=== PATIENT | female | born 1975 | race Two or more races ===

== ENCOUNTER 2023-12-03 09:22 | Outpatient (OUT) | payer BC, MEDICAID, SELFPAY ==
--- NOTE | 2023-11-30 08:44 | V.VEINS.HP ---
Vital Signs 12/03/23 10:36 Height 5 ft 4 in Weight 67.585 kg BMI 25.6 BP 139/76 BP Location Right Brachial BP Position Supine BP Cuff Size Adult BP Source Manual Cuff Respiration 16 Pulse 67 Pulse Source Monitor Pulse Oximetry (%) 96 Oxygen Delivery Method Room Air Comment The patient's blood pressure is elevated. Varicose Veins Patient is a 48 year old female in this day as a referral from her PCP Dr. Gauthier secondary to left lower leg painful varicose vein along with bilateral leg muscle cramping and increased fatigue. Patient c/o left leg pain near knee. Patient has had this pain for many of years. 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 Patient has worn bilateral leg knee high compression stockings for >3 years with some relief. Patient rates pain at a 8 on a scale of 10. Patient has family history of varicose vein disease in her father. Patient denies any previous vein procedures nor blood clots. Tony Reynolds MD personally performed the services described in this documentation, as scribed by Manoj Cisneros RN in my presence and it is both accurate and complete. Manoj Reynolds RN, am scribing for, and in the presence of, Dr. Tony Higuera and in the presence of the patient. . knee: left aching, cramping and dull 8 3 years Worsened in recent months: Yes standing and sitting analgesics (Tylenol), elevating extremities and compression stockings Reports limb pain (left leg) History of lower extremity trauma: No Superficial thrombophlebitis: No Family history of varicose veins: yes Has patient had previous lower extremity venous surgery: No Patient has previously received the following treatment(s) for lower extremity varicose veins: Reports none Does patient have a history of : yes Does patient intend to have future pregnancies: no Has patient had lower extremity venous scan with relux testing: No Support hose used: Yes Problems walking or doing physical activity: Yes How does it affect you: often has to stop and rest and elevate Do you walk much: Yes Do you stand much: Yes Review of Systems ROS Narrative Tony Reynolds MD personally performed the services described in this documentation, as scribed by Manoj Cisneros RN in my presence and it is both accurate and complete. Manoj Reynolds RN, am scribing for, and in the presence of, Dr. Tony Higuera and in the presence of the patient. Status of ROS 10 or more systems reviewed and unremarkable except as noted in history and below Integumentary/Breast Reports: skin tenderness Neurological Reports: weakness in extremities [facility] Medical History (Updated 12/03/23 @ 09:53 by Manoj Cisneros) Varicose veins of bilateral lower extremities with pain ?I83.813 - Varicose veins of bilateral lower extremities with pain (ICD-10) Anemia ?D64.9 - Anemia, unspecified (ICD-10) Carpal tunnel syndrome, left ?G56.02 - Carpal tunnel syndrome, left upper limb (ICD-10) Hyperlipemia ?E78.5 - Hyperlipidemia, unspecified (ICD-10) Microcytic anemia ?D50.9 - Iron deficiency anemia, unspecified (ICD-10) MRSA (methicillin resistant Staphylococcus aureus) ?A49.02 - Methicillin resistant Staphylococcus aureus infection, unspecified site (ICD-10) Phlebitis ?I80.9 - Phlebitis and thrombophlebitis of unspecified site (ICD-10) Cellulitis ?L03.90 - Cellulitis, unspecified (ICD-10) Surgical History (Updated 11/30/23 @ 12:53 by Manoj Cisneros) H/O: hysterectomy ?Z90.710 - Acquired absence of both cervix and uterus (ICD-10) Family History (Updated 11/30/23 @ 12:54 by Manoj Cisneros) Other Cerebral aneurysm Family history of myocardial infarction Renal failure Social History (Updated 11/30/23 @ 12:54 by Manoj Cisneros) Within the past year, how often did you have a drink containing alcohol: monthly or less Smoking status: Never smoker Non-prescribed substance use: denies use Meds Home Medications and Allergies Home Medications ?Medication ?Instructions ?Recorded ?Confirmed ?Type amlodipine 5 mg tablet 5 mg PO DAILY 11/30/23 11/30/23 History ferrous sulfate 325 mg (65 mg 325 mg PO DAILY 11/30/23 11/30/23 History iron) tablet (Feosol) Allergies Allergy/AdvReac Type Severity Reaction Status Date / Time No Known Drug Allergies Allergy Verified 11/30/23 12:55 Exam Narrative Exam Narrative: Tony Reynolds MD personally performed the services described in this documentation, as scribed by Manoj Cisneros RN in my presence and it is both accurate and complete. Manoj Reynolds RN, am scribing for, and in the presence of, Dr. Tony Higuera and in the presence of the patient. Constitutional Documenting provider has reviewed patient's vital signs: yes Common normals: oriented x3 Cardio Peripheral pulses: posterior tibial pulses present and dorsalis pedis pulses present Extremity Common normals: normal capillary refill General: calf tenderness and edema Right lower extremity: lower leg Right lower leg: inspection and palpation Left lower extremity: lower leg Left lower leg: inspection and palpation Neuro Common normals: oriented x3 Results Additional Findings Additional findings: Bilateral leg reflux u/s reveals left leg anterior accesssory saphenous vein and great saphenous vein insufficiency with associated dilatation along with branch saphenous truncal tributary varicosities. Tony Reynolds MD personally performed the services described in this documentation, as scribed by Manoj Cisneros RN in my presence and it is both accurate and complete. IManoj RN, am scribing for, and in the presence of, Dr. Tony Higuera and in the presence of the patient. Assessment and Plan Assessment and Plan Plan Plan is for patient to continue use of bilateral leg compression stockings, exercise, rest, and elevation of bilatreal legs/feet. Patient to return for EVLT of left AASV followed by left GSV followed by microfoam chemical ablation branch saphenous varicosities. Tony Reynolds MD personally performed the services described in this documentation, as scribed by Manoj Cisneros RN in my presence and it is both accurate and complete. Manoj Reynolds RN, am scribing for, and in the presence of, Dr. Tony Higuera and in the presence of the patient.
--- NOTE | 2023-11-30 08:46 | P.DS_ITS ---
Discharge Plan Discharge Disposition: Home, Self-Care Outpatient Diagnostics: VC Endovenous Ablation 1VeinLT (Routine) Timeframe: 2 Months Facility: [facility] - Location: [facility] Center Ordered By: Tony Higuera Plan of Treatment: EVLT of left AASV Print Language: Georgian Discharge Date/Time: 12/03/23 11:49
--- NOTE | 2023-12-03 09:25 | VEIN_ITS ---
Patient Name: ANA EMMANUEL MR#: [id number] : 1975 Exam Date: 12/03/2023 Ordering Doctor: DR TONY HIGUERA M.D. RADIOLOGY REPORT PROCEDURE: [facility] VEIN [place] - OFFICE VISIT INITIAL COMPARISON: None. PROGRESS NOTES: 48-year-old female who presents from her primary care physician, Dr. Gauthier, with a long history of left leg pain and swelling and muscle cramping. The patient describes the pain as achy and sometimes sharp rating the pain as an 8 on a scale of 1-10. The patient's pain is exacerbated by prolonged standing required of her job working in [place] at [employer] for the past 19 years. The patient has had some partial relief with compression stockings which she has worn for approximately 3 years. The patient denies any signs and symptoms to suggest arterial ischemia. The patient describes a family history significant for cerebral aneurysm and myocardial infarction and renal failure. Patient's past medical history significant for cellulitis, phlebitis, hyperlipidemia and anemia. Past surgical history significant for hysterectomy. No history of deep venous thrombus or pulmonary embolus. See separate history and physical for medication list. No prior treatment for varicose or spider veins. Nursing notes were reviewed. After history and physical exam I discussed at length the pathophysiology of venous hypertension and possible treatments, therapies and strategies available. We discussed at length the importance of elevating the lower extremities above the level of the heart, increased physical activity and compression stocking use. Intravenous laser ablation micro foam chemical ablation were explained at length to the patient and her . Risks benefits on alternatives were discussed. Their questions were answered. Ultrasound venous reflux study performed the same day was discussed at length with the patient. The report demonstrates moderate bilateral great saphenous vein and left anterior accessory saphenous vein venous insufficiency. Bilateral incompetent varicose veins. In light of the patient not having symptoms on the right I recommended no treatment of the right leg at this time. PHYSICAL EXAM: The right leg demonstrates no significant varicose reticular spider veins. No active ulceration, hemosiderin staining or subcutaneous edema The left leg demonstrates moderate scattered varicose veins along the anterior thigh, lateral knee and lateral lower leg. No subcutaneous edema or hemosiderin staining. No active ulceration Both thighs, legs and feet were symmetrically warm to the touch. Good posterior tibial and dorsalis pedis pulses were present bilaterally. VEIN/VC Facility NEW Comprehensive IMPRESSION: 1. Bilateral great saphenous vein, left anterior accessory saphenous vein venous insufficiency with dilatation and saphenofemoral junction reflux 2. Left lower extremity varicose veins 3. No definite lower extremity subcutaneous edema 4. No definite flow significant arterial disease 5. CEAP: C2, Ep, As, Pr PLAN: 1. Endovenous laser ablation left anterior accessory saphenous vein followed by left great saphenous vein 2. Micro foam chemical ablation left leg incompetent varicose veins 3. Continued use of bilateral thigh-high or knee high 20-30 mm compression stockings 4. Leg elevation and continued physical activity for symptomatic relief Nurse notes, history and physical were reviewed and confirmed, see attached forms. The nurse was present throughout the physical exam and consultation Dictated by: Tony Higuera MD on 12/03/2023 at 11:17 Approved by: Tony Higuera MD on 12/03/2023 at 11:29
--- NOTE | 2023-12-03 09:25 | VEIN_ITS ---
Patient Name: ANA EMMANUEL MR#: [id number] : 1975 Exam Date: 12/03/2023 Ordering Doctor: DR TONY HIGUERA M.D. RADIOLOGY REPORT PROCEDURE: VC EXT VENOUS REFLUX KATIA LMTD COMPARISON: None. INDICATIONS: I83.813 Bilateral painful varicose veins TECHNIQUE: Duplex imaging of the lower extremity to assess the deep and superficial venous system for the presence of deep or superficial venous incompetence and to document the location and severity of disease. The study includes evaluation of the great saphenous vein (GSV), anterior accessory saphenous vein (AASV) and small saphenous vein (SSV). Patient scanned in reverse Trendelenburg and standing. FINDINGS: RIGHT LOWER EXTREMITY: Saphenofemoral Junction Reflux: Yes 8.8mm 0.6 sec GSV: Diam (mm) Reflux/ Time (sec) Proximal Thigh 7.1 Yes 1.1 Mid Thigh 2.9 Yes 0.4 Distal Thigh 3.4 Yes 0.6 Prox Calf 3.0 Yes 4.0 Mid Calf 2.2 Yes 1.8 Saphenopopliteal Junction Reflux: 1.3mm No SSV: Proximal Calf 1.9 Yes 0.6 Mid Calf 1.7 No AASV: Proximal Thigh 3.1 No Mid Thigh Distal Thigh Thrombi: No acute or chronic thrombus. Compressibility: Normal. Flow: No deep venous reflux. Preforator: Proximal medial calf 2.7 mm with 1.5s reflux. Tech Note: Incompetent varicose vein proximal medial lower leg measures 4.0 mm with 1.0s reflux. LEFT LOWER EXTREMITY: Saphenofemoral Junction Reflux: Yes 8.1 mm 1.6 sec GSV: Diam (mm) Reflux/Time (sec) Proximal Thigh 8.2 Yes 0.9 Mid Thigh 5.2 Yes 0.5 Distal Thigh 4.8 Yes 0.4 Prox Calf 3.8 Yes 2.4 Mid Calf 1.0 Yes 1.3 Saphenopopliteal Junction Relux: 1.7 mm No SSV: Proximal Calf 1.2 No Mid Calf 3.3 Yes 4.7 AASV: Proximal Thigh 5.9 Yes 2.4 Mid Thigh 3.6 Yes 1.6 Distal Thigh Thrombi: No acute or chronic thrombus. Compressibility: Normal. Flow: Minimal deep venous reflux. Business Systems Consultant: Mid medial lower leg 2.3 mm with 2.9s reflux. Tech Note: Incompetent varicose vein off of AASV proximal lateral lower leg measures 4.0 mm with 1.5s reflux. Varicose vein proximal medial lower leg measures 4.0 mm with 0.8s reflux. CONCLUSION: 1. Moderate right great saphenous vein venous insufficiency with mild proximal dilatation and saphenofemoral junction reflux 2. Moderate left great saphenous vein venous insufficiency with dilation and saphenofemoral junction reflux 3. Moderate left anterior accessory saphenous vein venous insufficiency with dilatation 4. Bilateral incompetent varicose veins Dictated by: Tony Higuera MD on 12/03/2023 at 10:42 Approved by: Tony Higuera MD on 12/03/2023 at 10:44
[2023-12-03 10:36] VITALS: BP 139/76; PULSE 67; O2SAT 96; BMI 25.6
== END 2023-12-03 11:49 | disposition home or self-care (01) ==
LOC: VC 09:23
PROVIDERS: PCP Family Medicine; Visit Provider Radiology Diagnostic Radiology
DX: I83.813 Varicose veins of bilateral lower extremities with pain (principal)
CPT/HCPCS: 93970; G0463

== ENCOUNTER 2024-01-08 10:16 | Outpatient (OUT) | payer BC, MEDICAID, SELFPAY ==
--- NOTE | 2024-01-07 13:57 | VEINCLINIC_ITS ---
Vital Signs 01/08/24 11:07 BP 150/70 H BP Location Left Brachial BP Position Sitting BP Cuff Size Adult BP Source Automatic Cuff Respiration 16 Pulse 80 Pulse Source Monitor Pulse Oximetry (%) 98 Oxygen Delivery Method Room Air Comment The patient's blood pressure is elevated. Varicose Veins Patient in this day for EVLT of left AASV. Clem Reynolds MD personally performed the services described in this documentation, as scribed by Manoj Cisneros RN in my presence and it is both accurate and complete. Manoj Reynolds RN, am scribing for, and in the presence of, Dr. Clem Kumar and in the presence of the patient. . knee: left aching, cramping and dull 8 3 years Worsened in recent months: Yes standing and sitting analgesics (Tylenol), elevating extremities and compression stockings Reports limb pain (left leg) History of lower extremity trauma: No Superficial thrombophlebitis: No Family history of varicose veins: yes Has patient had previous lower extremity venous surgery: No Patient has previously received the following treatment(s) for lower extremity varicose veins: Reports none Does patient have a history of : yes Does patient intend to have future pregnancies: no Has patient had lower extremity venous scan with relux testing: No Support hose used: Yes Problems walking or doing physical activity: Yes How does it affect you: often has to stop and rest and elevate Do you walk much: Yes Do you stand much: Yes Review of Systems ROS Narrative Clem Reynolds MD personally performed the services described in this documentation, as scribed by Manoj Cisneros RN in my presence and it is both accurate and complete. Manoj Reynolds RN, am scribing for, and in the presence of, Dr. Clem Kumar and in the presence of the patient. Status of ROS 10 or more systems reviewed and unremark able except as noted in history and below Integumentary/Breast Reports: skin tenderness Neurological Reports: weakness in extremities [facility] Medical History (Updated 12/03/23 @ 09:53 by Manoj Cisneros) Varicose veins of bilateral lower extremities with pain ?I83.813 - Varicose veins of bilateral lower extremities with pain (ICD-10) Anemia ?D64.9 - Anemia, unspecified (ICD-10) Carpal tunnel syndrome, left ?G56.02 - Carpal tunnel syndrome, left upper limb (ICD-10) Hyperlipemia ?E78.5 - Hyperlipidemia, unspecified (ICD-10) Microcytic anemia ?D50.9 - Iron deficiency anemia, unspecified (ICD-10) MRSA (methicillin resistant Staphylococcus aureus) ?A49.02 - Methicillin resistant Staphylococcus aureus infection, unspecified site (ICD-10) Phlebitis ?I80.9 - Phlebitis and thrombophlebitis of unspecified site (ICD-10) Cellulitis ?L03.90 - Cellulitis, unspecified (ICD-10) Surgical History (Updated 01/08/24 @ 10:54 by Manoj Cisneros) Status post laser ablation of incompetent vein ?Z98.890 - Other specified postprocedural states (ICD-10) H/O: hysterectomy ?Z90.710 - Acquired absence of both cervix and uterus (ICD-10) Family History (Updated 11/30/23 @ 12:54 by Manoj Cisneros) Other Cerebral aneurysm Family history of myocardial infarction Renal failure Social History (Updated 11/30/23 @ 12:54 by Manoj Cisneros) Within the past year, how often did you have a drink containing alcohol: monthly or less Smoking status: Never smoker Non-prescribed substance use: denies use Meds Home Medications and Allergies Home Medications ?Medication ?Instructions ?Recorded ?Confirmed ?Type amlodipine 5 mg tablet 5 mg PO DAILY 11/30/23 11/30/23 History ferrous sulfate 325 mg (65 mg 325 mg PO DAILY 11/30/23 11/30/23 History iron) tablet (Feosol) Allergies Allergy/AdvReac Type Severity Reaction Status Date / Time No Known Drug Allergies Allergy Verified 11/30/23 12:55 Exam Narrative Exam Narrative: IClem MD personally performed the services described in this documentation, as scribed by Manoj Cisneros RN in my presence and it is both accurate and complete. IManoj RN, am scribing for, and in the presence of, Dr. Clem Kumar and in the presence of the patient. Constitutional Documenting provider has reviewed patient's vital signs: yes Common normals: oriented x3 Cardio Peripheral pulses: posterior tibial pulses present and dorsalis pedis pulses present Extremity Common normals: normal capillary refill General: calf tenderness and edema Right lower extremity: lower leg Right lower leg: inspection and palpation Left lower extremity: lower leg Left lower leg: inspection and palpation Neuro Common normals: oriented x3 Assessment and Plan Assessment and Plan (1) Varicose veins of bilateral lower extremities with pain: Plan f/u evaluation with physician along with left leg limited u/s Clem Reynolds MD personally performed the services described in this documentation, as scribed by Manoj Cisneros RN in my presence and it is both accurate and complete. IManoj RN, am scribing for, and in the presence of, Dr. Clem Kumar and in the presence of the patient. Procedures Procedure Instructions Procedures Plan of care: Risks and benefits of the procedure were discussed at length and informed written consent was obtained.? Time-out completed for verification of correct patient, procedure and site.? Staff present during time-out: Manoj Cisneros RN,? Clem Kumar MD, [facility],T. Time Out Time__1051 Patient prepped and procedure performed in usual sterile fashion. Risk of injury related to use of Diode laser and/or laser devices? __CR___ ? Serial number of laser used :? [id number] Control panel self test performed, electrical cords in good condition, floor is dry, basin of water available, fire extinguisher in close proximity_CR__ Polycarbonate goggles available and Laser warning signs outside of doors___CR__ Eye protection provided to patient and staff in room_CR___ Use of laser retardant drapes and dull blackened instruments as directed__CR___ Use of nonflammable prep solutions and use of saline soaked sponges to protect tissues as indicated _CR___ Length __1051 cm Laser operated by _Dr. Kumar Physician verbal confirmation laser locked in place__CR__ Laser start time (date and time) _01/07/2024@__1112 Laser stop time(date and time) _01/07/2024@__1113 Bautista _8.0___ Average laser use __21 Joules Average laser use__169 seconds Pulse continuous ___CR_? Pulse intermittent ___ Amount of Tumescent used _75 Evaluated patient for signs and symptoms of electrical injury __CR___ ? Skin clear at insertion site __CR___ Patient tolerated procedure well.? Left leg Coban dressing applied to access site.? Applied Left thigh high leg compression stocking. Will return on 01/15/2024 for Left leg limited venous ultrasound and exam. IClem MD personally performed the services described in this documentation, as scribed by Manoj Cisneros RN in my presence and it is both accurate and complete. I, Manoj Cisneros RN, am scribing for, and in the presence of, Dr. Clem Kumar and in the presence of the patient.
--- NOTE | 2024-01-07 14:01 | W.VEIN ---
Discharge Plan Discharge Disposition: Home, Self-Care Outpatient Diagnostics: VC Facility EST LMTD (Routine) Timeframe: 2 Weeks Facility: [facility] - Location: Vein Center Ordered By: Clem Kumar VC EXT Venous LT Limited (Routine) Timeframe: 2 Weeks Facility: [facility] - Location: Vein Center Ordered By: Clem Kumar Follow Up Appointments: 01/15/2024 Plan of Treatment: f/u evaluation with physician along with left leg limited u/s Patient Instructions: Endovenous Ablation (DC) Print Language: Dominican Discharge Date/Time: 01/08/24 11:06
[2024-01-08] MEDS: LIDOCAINE HCL 1% 100 MG/10 ML MDV INJ (10:15)
[2024-01-08] MEDS: 0.9 % SODIUM CHLORIDE 500 ML, LIDOCAINE HCL 20 ML, SODIUM BICARBONATE 10 MEQ INJ (10:16)
--- NOTE | 2024-01-08 10:16 | VEIN_ITS ---
[address] [address] Patient Name: ANA EMMANUEL MRN: [id number] date: 1975 Sex: F Assigned Patient Location: Current Patient Location: Accession/Order Number: [id number] Exam Date: 01/08/2024 10:23 Report Date: 01/08/2024 11:39 At the request of: CHENTE ROBERTS Procedure: VC Endovenous Ablation 1VeinLT EXAMINATION: VC Endovenous Ablation 1VeinLT HISTORY: I83.813 - Varicose veins of bilateral lower extremities w... The risks and benefits of the procedure had been previously discussed, and were rediscussed at length. Informed written consent was obtained. Manoj Cisneros RN and Keisha Montero RDMS, RVT assisted. Time out procedure was performed. The left lower extremity was prepared and draped in the usual sterile fashion to allow knee flexion in the sterile field. Duplex ultrasound probe was draped in a sterile cover, sterile transmission gel was used. Venous mapping was performed with the areas of dilation and large tributaries marked. The total length was 6 cm from the entry upper thigh to 3 cm below the Saphenofemoral junction. The diameter of the left anterior accessory saphenous vein ranged from 5.9 mm. A 30 gauge needle and 1% buffered lidocaine was used to anesthetize the entry site. A 4 mm incision was made with a scalpel and the saphenous vein was entered percutaneously under direct ultrasound guidance with a micropuncture set, a single stick was successful in gaining access. A micro-guide wire was inserted and the needle removed. A micro-set including a dilator was inserted over the microwire and the needle and dilator were removed. A guide wire was inserted through the micro-set and guided through the saphenous vein to the saphenofemoral junction. The dilator was removed and an introducer sheath was inserted over the wire until the end of the sheath entered the saphenofemoral junction. The dilator and wire were removed and the 600 micron fiber was introduced and placed and positioned so that it extended beyond the sheath and was 3 cm distal to the saphenofemoral or saphenopopliteal junction. Final position of the fiber was determined by ultrasound guidance and duplex imaging. Tumescent anesthetic was delivered by ultrasound guidance. 75 cc of fluid was delivered along the entire course of the saphenous vein. The solution consisted of 1000 cc of normal saline with 40 mL of 1% lidocaine and 20 mL of sodium bicarbonate. A final positioning check was made. The energy source was turned on by means of the foot pedal and the fiber and sheath were withdrawn. The total number of Joules delivered was 21. The laser was active for 169 seconds under continuous pulse, average laser use of 8 J. Laser start time: 11:12 AM Laser stop time: 11:12 AM Date: 01/08/2024. A duplex ultrasound revealed compressibility and flow at the saphenofemoral junction immediately after the procedure. Hemostasis at the access site was achieved. The skin incision of the saphenous vein was closed with a 4 x 4. A compression stocking was applied. Postop instructions were given. A follow up appointment was recommended and scheduled. The patient tolerated the procedure well. Electronically authenticated by: MALDONADO BLEVINS Date: 01/08/2024 11:39
--- OUTSIDE RECORDS SUMMARY | 2024-01-08 10:26 | XMS_ITS | CCD ---
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 Name Role Phone Fabio Gauthier Unavailable DO Fabio Gauthier Primary Care Provider DO Fabio Gauthier Attending Provider EFRA Joseph- Fanny Hitchcock Emergency Provider DO Fabio Gauthier Primary Care Provider DO Fabio Gauthier Attending Provider DO Fabio Gauthier Primary Care Provider DO Fabio Gauthier Attending Provider [phone] Fabio Gauthier Primary Care Unavailable Fabio Gauthier Attending Unavailable Fabio Gauthier Admitting Unavailable Fabio Gauthier Referring Unavailable Self, Referral Admitting Unavailable Self, Referral Attending Unavailable Fabio Gauthier Primary Care Unavailable DO Fabio Gauthier Referring Provider Self, Referral Attending Provider Unavailable Medications Current Medications Medication Drug Class(es) Dates Sig (Normalized) Sig (Original) acetaminophen 325 mg oral tablet (5 sources) take 1 tablet by mouth every four hours Tylenol 325 MG 1 tablet as needed Orally every 4 hrs Active amoxicillin 875 mg oral tablet (8 sources) Penicillin-class Antibacterial Start: 11-24-2020 take 1 tablet by mouth every eight hours Amoxicillin 875 MG 1 tablet Orally TID for 10 days Nov, Active cefdinir 300 mg oral capsule (3 sources) Cephalosporin Antibacterial Start: 09-27-2021 take 1 capsule by mouth every twelve hours Cefdinir 300 MG 1 capsule Orally BID for 10 days Sep, Active Start: 05-31-2021 take 1 capsule by mo [facility] every twelve hours Cefdinir 300 MG 1 capsule Orally BID for 10 days May, Active cholecalciferol 0.05 mg oral tablet (4 sources) Vitamin D take 1 tablet by mouth every twenty-four hours Vitamin D 50 MCG (2000 UT) 1 tablet Orally Once a day Active cyclobenzaprine hydrochloride 10 mg oral tablet (5 sources) Muscle Relaxant Start: 2021 take 1 tablet by mouth every twenty-four hours Cyclobenzaprine HCl 10 MG 1 tablet at bedtime as needed Orally Once a day Oct, Active dexamethasone 2 mg oral tablet (8 sources) Corticosteroid Start: 2020 Dexamethasone 2 MG 1 tablet Orally tid x 3 days, bid x 3 days, qd x 3 days for 9 days Dec, Active famotidine 26.6 mg / ibuprofen 800 mg oral tablet (8 sources) Nonsteroidal Anti-inflammatory Drug, Histamine-2 Receptor Antagonist Start: 2020 take 1 tablet by mouth every eight hours Duexis 800-26.6 MG 1 tablet Orally Three times a day Apr, Active ferrous sulfate 325 mg delayed release oral tablet (18 sources) Start: 2018 take 325 mg by mouth once daily Ferrous Sulfate Active 325 MG PO Daily February 27, 2019 1:00am take 1 tablet by mireya th every twenty-four hours Iron 325 (65 Fe) MG 1 tablet Orally Once a day Active fluticasone propionate 0.05 mg/actuat metered dose nasal spray (8 sources) Corticosteroid Start: 04-11-2019 take 2 spray(s) nasal route once daily as needed Fluticasone Propionate 50 MCG/ACT 2 spray in each nostril Nasally Once a day PRN Mar, Active Iron (6 sources) take 1 tablet by mouth once daily Iron 325 (65 Fe) MG 1 tablet Orally Once a day Active Magnesium (4 sources) take 1 capsule by mouth once daily Magnesium 300 MG 1 capsule with a meal Orally Once a day Active meloxicam 15 mg oral tablet (8 sources) Nonsteroidal Anti-inflammatory Drug Start: 10-15-2020 take 1 tablet by mouth every twenty-four hours Meloxicam 15 MG 1 tablet Orally Once a day for 30 day(s) Oct, Active oseltamivir 75 mg oral capsule (4 sources) Neuraminidase Inhibitor Start: 03-09-2021 take 1 capsule by mouth every twelve hours Tamiflu 75 MG 1 capsule Orally Twice a day for 5 day(s) Feb, Active paxlovid (300/100) 20 x 150 mg & 10 x 100mg tablet therapy pack (1 source) Start: 04-20-2023 take 3 tablets by mouth every twelve hours Paxlovid (300/100) 20 x 150 MG & 10 x 100MG 3 tablets Orally Twice a day for 5 days positive covid 04/20/23 GFR>60 Apr, Active Vitamin B 12 500 MCG (2 sources) take 1 tablet by mouth once daily Vitamin B 12 500 MCG 1 tablet Orally Once a day Active vitamin b12 0.5 mg oral tablet (2 sources) Vitamin B12 take 1 tablet by mouth every twenty-four hours Vitamin B 12 500 MCG 1 tablet Orally Once a day Active Xyzal Allergy 24HR 5 MG (8 sources) Start: 05-11-2020 take 1 tablet by mouth once daily in the evening Xyzal Allergy 24HR 5 MG 1 tablet in the evening Orally Once a day for 30 day(s) sample May, Active Completed/Discontinued Medications Medication Drug Class(es) Dates Sig (Normalized) Sig (Original) acetaminophen 325 mg / HYDROcodone bitartrate 5 mg oral tablet (8 sources) Opioid Agonist Start: 03-10-2019 End: 10-24-2021 take 1 tablet by mouth every six hours Hydrocodone-Aceta minophen Discontinued 1 TAB PO Q6H 28 March 10, 2019 October 24, 2021 9:40am amLODIPine 5 mg oral tablet (20 sources) Dihydropyridine Calcium Channel Berhane Start: 07-08-2018 End: 11-02-2023 take 5 mg by mouth once daily Amlodipine Discontinued 5 MG PO Daily August 03, 2018 12:00am November 02, 2023 12:05pm amoxicillin 875 mg / clavulanate 125 mg oral tablet (12 sources) Penicillin-class Antibacterial Start: 10-24-2021 End: 10-12-2023 take 1 tablet by mouth twice daily Amoxicillin-Pot Clavulanate Discontinued 1 TAB PO Twice daily October 24, 2021 12:00am October 12, 2023 11:37am Start: 10-24-2021 take 1 tablet by mireya twice daily Amoxicillin-Pot Clavulanate Active 1 TAB PO Twice daily October 24, 2021 12:00am Start: 10-24-2021 take 1 tablet by mireya th twice daily Amoxicillin-Pot Clavulanate Active 1 TAB PO Twice daily October 24, 2021 12:00am Start: 10-12-2021 take 1 tablet by mireya th every twelve hours Amoxicillin-Pot Clavulanate 875-125 MG 1 tablet Orally every 12 hrs for 14 days Oct, Active Start: 06-22-2021 take 1 tablet by mireya th every twelve hours Amoxicillin-Pot Clavulanate 875-125 MG 1 tablet Orally every 12 hrs Jun, Active azithromycin 250 mg oral tablet (20 sources) Macrolide Antimicrobial Start: 05-17-2023 End: 10-12-2023 Azithromycin (Zithromax Z-Sunny) 250 mg tablet Discontinued 250 MG PO As Directed July 16, 2023 10:34am October 12, 2023 11:37am ZPAK Start: 04-17-2023 Zithromax Z-Pa k 250 MG 2 tablets on the first day, then 1 tablet daily for 4 days Orally Once a day for 5 day(s) Apr, Active Start: 11-04-2021 Zithromax Z-Pa k 250 MG as directed Orally as directed May, Active Start: 07-21-2021 Zithromax Z-Pa k 250 MG 2 tablet on the first day, then 1 tablet daily for 4 days Orally Once a day for 5 day(s) July, Active Start: 10-12-2020 Zithromax Z-Pa k 250 MG 2 tablet on the first day, then 1 tablet daily for 4 days Orally Once a day for 5 day(s) Feb, Active cephalexin 500 mg oral capsule (8 sources) Cephalosporin Antibacterial Start: 08-03-2018 End: 12-27-2018 take 1 capsule by mouth four times daily Cephalexin (Keflex) 500 mg capsule Discontinued 500 MG PO Four times daily 06 10August 03, 2018 12:00am December 27, 2018 3:31pm estradiol 1 mg oral tablet (16 sources) Estrogen Start: 08-03-2018 End: 10-24-2021 take 1 mg by mouth once daily at breakfast Estradiol Discontinued 1 MG PO Daily with breakfast August 03, 2018 12:00am [place] 15th, 2022 9:40am hydrocortisone 10 mg/ml / neomycin 3.5 mg/ml / polymyxin b [id number] unt/ml otic suspension (8 sources) Aminoglycoside Antibacterial, Polymyxin-class Antibacterial, Corticosteroid Start: 11-26-2020 End: 10-24-2021 Tcwmwmuj-Jmbdgoppy-Uy Discontinued 4 DROPS EAR-BOTH Three times daily 10 November 26, 2020 12:00am October 24, 2021 9:40am methylPREDNISolone 4 mg oral tablet (3 sources) Corticosteroid Start: 11-02-2023 End: 01-04-2024 take 1 tablet by mouth once Methylprednisolone (Medrol (Sunny)) 4 mg tablets,dose pack Discontinued 0 PO per package directions November 02, 2023 12:00am January 04, 2024 8:58am PO PER PKG DIR naproxen sodium 220 mg oral tablet (8 sources) Nonsteroidal Anti-inflammatory Drug Start: 02-27-2019 End: 10-24-2021 take 1 tablet by mouth twice daily Naproxen Sodium (Aleve) 220 mg Tablet Discontinued 220 MG PO Twice daily February 27, 2019 1:00am October 24, 2021 9:40am Problems Active Problems Problem Classification Problem Date Documented Da te Episodic/Chronic Abdominal pain (8 sources) Flank pain; Translations: [Unspecified abdominal pain] 08-03-2018 Episodic Biliary tract disease (8 sources) Biliary colic; Translations: [Calculus of bile duct without cholangitis or cholecystitis without obstruction] 02-08-2019 Episodic Conditions associated with dizziness or vertigo (3 sources) Dizziness and giddiness Onset: 2 Resolved: 2 Episodic Deficiency and other anemia (20 sources) Microcytic anemia; Translations: [Iron deficiency anemia, unspecified] Episodic Deficiency and other anemia (2 sources) Iron deficiency anemia, unspecified Episodic Diabetes mellitus without complication (2 sources) Hyperglycemia, unspecified; Translations: [Other abnormal glucose] Onset: 4 11-02-2023 Episodic Disorders of lipid metabolism (20 sources) Hyperlipidemia; Translations: [Hyperlipidemia, unspecified] Onset: 4 Chronic Essential hypertension (20 sources) Elevated blood pressure; Translations: [Essential (primary) hypertension] Onset: 2 Resolved: 2 Chronic Malaise and fatigue (1 source) Other fatigue Episodic Menopausal disorders (6 sources) Menopausal flushing; Translations: [Menopausal and female climacteric states] Chronic Osteoarthritis (20 sources) Osteoarthritis of knee; Translations: [Unilateral primary osteoarthritis, left knee] Chronic Other circulatory disease (11 sources) Elevated blood pressure; Translations: [Elevated blood-pressure reading, without diagnosis of hypertension] Episodic Other connective tissue disease (19 sources) Pain in left lower limb; Translations: [Pain in left leg] Episodic Other connective tissue disease (8 sources) Pain of bilateral hands; Translations: [Pain in right hand] Episodic Other connective tissue disease (8 sources) Pain of left hand; Translations: [Pain in left hand] Episodic Other ear and sense organ disorders (9 sources) Otalgia, right ear; Translations: [Right ear pain] Episodic Other ear and sense organ disorders (8 sources) Impacted cerumen; Translations: [Impacted cerumen, unspecified ear] 12-27-2018 Episodic Other ear and sense organ disorders (8 sources) Acute otitis externa; Translations: [Unspecified acute noninfective otitis externa, right ear] 11-26-2020 Episodic Other hematologic conditions (20 sources) H/O: anemia - iron deficient; Translations: [Personal history of diseases of the blood and blood-forming organs and certain disorders involving the immune mechanism] Episodic Other liver diseases (1 source) Elevated liver enzymes level; Translations: [Abnormal levels of other serum enzymes] 01-04-2024 Episodic Other liver diseases (1 source) Abnormal levels of other serum enzymes; Translations: [Other nonspecific abnormal serum enzyme levels] 01-04-2024 Episodic Other lower respiratory disease (1 source) Cough; Translations: [Cough] 01-04-2024 Episodic Other nervous system disorders (20 sources) Carpal tunnel syndrome of left wrist; Translations: [Carpal tunnel syndrome, left upper limb] Chronic Other non-traumatic joint disorders (19 sources) Pain in left knee; Translations: [Left knee pain, unspecified chronicity] Episodic Other screening for suspected conditions (not mental disorders or infectious disease) (5 sources) Encounter for other screening for malignant neoplasm of breast; Translations: [Encounter for screening for malignant neoplasm of colon] Onset: Episodic Other upper respiratory disease (10 sources) Congestion of nasal sinus; Translations: [Nasal congestion] Episodic Other upper respiratory disease (1 source) Other specified disorders of nose and nasal sinuses Episodic Other upper respiratory infections (18 sources) Sinusitis; Translations: [Chronic sinusitis, unspecified] Onset: 2 Resolved: 2 10-24-2021 Chronic Other upper respiratory infections (19 sources) Acute sinusitis; Translations: [Acute sinusitis, unspecified] Episodic Otitis media and related conditions (20 sources) Mastoiditis; Translations: [Unspecified mastoiditis, right ear] Onset: 2 Resolved: 2 Episodic Phlebitis; thrombophlebitis and thromboembolism (20 sources) Phlebitis; Translations: [Phlebitis and thrombophlebitis of unspecified site] 11-02-2023 Episodic Residual codes; unclassified (20 sources) Family history of malignant neoplasm of ovary; Translations: [Family history of malignant neoplasm of ovary] Episodic Residual codes; unclassified (1 source) Family history of diabetes mellitus Episodic Skin and subcutaneous tissue infections (8 sources) Cellulitis; Translations: [Cellulitis, unspecified] 08-03-2018 Episodic Past or Other Problems Problem Classification Problem Date Documented Date Episodic/Chronic Headache; including migraine (3 sources) Headache; including migraine; Translations: [Headache R51.9] Onset: 12-20-2020 Resolved: 12-20-2020 Influenza (1 source) Influenza due to other identified influenza virus with other respiratory manifestations Onset: 03-09-2021 Resolved: 03-09-2021 Episodic Nonmalignant breast conditions (1 source) Mastodynia Onset: 11-10-2021 Resolved: 11-10-2021 Episodic Other connective tissue disease (1 source) Pain in right hand Onset: 11-10-2021 Resolved: 11-10-2021 Episodic Other connective tissue disease (1 source) Pain in left hand Onset: 11-10-2021 Resolved: 11-10-2021 Episodic Unclassified (1 source) Cough R05.9 Onset: 03-09-2021 Resolved: 03-09-2021 Unclassified (1 source) Acute cough R05.1 Viral infection (1 source) Disease caused by 2019-nCoV; Translations: [COVID-19] Results Test Name Value Interpretation Reference Range Facility No Panel InformationOrdered By: Fabio Gauthier on 01-04-2024 RSV (POC) [facility] MM screening mammo BI w/CADo n 11-09-2023 MM screening mammo BI w/CAD [facility] [place] [address] [place] [address] Mammography Report Signed Patient: Jessy Barajas MR#: [id number] : 1975 Acct:[id number] Age/Sex: 48 / F ADM Date: 11/09/23 Loc: MD Room: Type: [facility] Attending Dr: Referral Self Copies to: Fabio Gauthier, SELF,REFERRAL Ordering Provider: SELF,REFERRAL Date of Service: 11/09/23 MM/MM screening mammo BI w/CAD: SCREENING CLINICAL DATA: Screening for malignancy. SCREENING MAMMOGRAM - FULL FIELD DIGITAL WITH TOMOSYNTHESIS AND CAD COMPARISON:Mammograms dating back to 2016. Tomosynthesis craniocaudal and mediolateral oblique views of both breasts were obtained using low- dose digital technique. This examination was reviewed with the aid of CAD. FINDINGS: The breast tissue is composed of scattered fibroglandular densities. There are no dominant masses, typically malignant calcifications or architectural distortion. There has been no significant interval change. MM/MM screening mammo BI w/CAD IMPRESSION: NO MAMMOGRAPHIC EVIDENCE OF MALIGNANCY. ROUTINE FOLLOW-UP IS RECOMMENDED IN ONE YEAR. RESULT CODE: 1 Negative DENSITY CODE: 2 (approximately 25-50% glandular) FOLLOW UP: 1YR The false-negative rate of mammography is approximately 10-percent. Management of a palpable abnormality must be based on clinical grounds. Patient was entered into a reminder system with a target due date for the next mammogram. Impression dictated by: Gio Collins Jr., D.ODelfina11/09/2023 10:40 AM Dictation Location: [facility] Transcribed By: HENNY 11/09/23 1040 Dictated By: Gio Collins Jr, DO 11/09/23 1040 Signed By: 11/09/23 1040 Normal [facility] A1C with Estimated Average G roxanne 11-05-2023 Glucose [Mass/Vol] 123 mg/dL Normal [facility] Comment on above: Result Comment: PERF ORMED BY: [address] [place] [address] PATHOLOGIST FIELD AGENT ARIC SHEN M.D. Performed By: #### C BC, CMP, LIPID, T4F, TSH3, A1C WTH eA #### [address] A1C with Estimated Average G luOrdered By: Fabio Gauthier on 11-05-2023 HbA1c (Bld) [Mass fraction] 5.9 % High 4.3-5.6 [facility] Comment on above: Result Comment: Incr eased risk for diabetes: 5.7 - 6.4 diabetes: >6.4 glycemic control for adults with diabetes: <7.0 Performed By: #### C BC, CMP, LIPID, T4F, TSH3, A1C WTH eA #### [address] Increased risk for d iabetes: 5.7 - 6.4diabetes: >6.4glycemic control for adults with diabetes: <7.0 Alanine aminotransferase [En zymatic activity/volume] in Serum or PlasmaOrdered By: Fabio Gauthier on 11-05-2023 ALT [Catalytic activity/Vol] 73 U/L High 7-52 [facility] Comment on above: Performed By: #### C BC, CMP, LIPID, T4F, TSH3, A1C WTH eA #### [address] Albumin [Mass/volume] in Ser um or Plasma by Bromocresol green (BCG) dye binding methoOrdered By: Fabio Gauthier on 11-05-2023 Albumin BCG dye [Mass/Vol] 5.2 g/dL 3.5-5.7 [facility] Alkaline phosphatase [Enzyma tic activity/volume] in Serum or PlasmaOrdered By: Fabio Gauthier on 11-05-2023 ALP [Catalytic activity/Vol] 114 U/L High 34-104 [facility] Comment on above: Performed By: #### C BC, CMP, LIPID, T4F, TSH3, A1C WTH eA #### [address] Aspartate aminotransferase [ Enzymatic activity/volume] in Serum or PlasmaOrdered By: Fabio Gauthier on 11-05-2023 AST [Catalytic activity/Vol] 33 U/L 13-39 [facility] Comment on above: Performed By: #### C BC, CMP, LIPID, T4F, TSH3, A1C WTH eA #### [address] Automated basophil %Ordered By: Fabio Gauthier on 11-05-2023 Basophils/100 WBC (Bld) 0.6 % . [facility] Comment on above: Performed By: #### C BC, CMP, LIPID, T4F, TSH3, A1C WT eA #### [address] Automated basophil countOrde red By: Fabio Gauthier on 11-05-2023 Basophils (Bld) [#/Vol] 0.1 10*3/uL 0.0-0.2 [facility] Comment on above: Result Comment: PERF ORMED BY: [place] [address] PATHOLOGIST FIELD AGENT ARIC SHEN M.D. Performed By: #### C BC, CMP, LIPID, T4F, TSH3, A1C WT eA #### [address] Automated blood monocyte cou ntOrdered By: Fabio Gauthier on 11-05-2023 Monocytes (Bld) [#/Vol] 0.5 10*3/uL 0.0-0.8 [facility] Comment on above: Performed By: #### C BC, CMP, LIPID, T4F, TSH3, A1C WTH eA #### [address] Automated eosinophil %Ordere d By: Fabio Gauthier on 11-05-2023 Eosinophils/100 WBC (Bld) 0.6 % . [facility] Comment on above: Performed By: #### C BC, CMP, LIPID, T4F, TSH3, A1C WTH eA #### [address] Automated eosinophil countOr dered By: Fabio Gauthier on 11-05-2023 Eosinophils (Bld) [#/Vol] 0.1 10*3/uL 0.0-0.45 [facility] Comment on above: Performed By: #### C BC, CMP, LIPID, T4F, TSH3, A1C WTH eA #### [facility] [address] Automated monocyte %Ordered By: Fabio Gauthier on 11-05-2023 Monocytes/100 WBC (Bld) 4.4 % . [facility] Comment on above: Performed By: #### C BC, CMP, LIPID, T4F, TSH3, A1C WTH eA #### [facility] [address] Automated neutrophil %Ordere d By: Fabio Gauthier on 11-05-2023 Neutrophils/100 WBC (Bld) 75.9 % . [facility] Comment on above: Performed By: #### C BC, CMP, LIPID, T4F, TSH3, A1C WTH eA #### [address] Bilirubin.total [Mass/volume ] in Serum or PlasmaOrdered By: Fabio Gauthier on 11-05-2023 Bilirubin [Mass/Vol] 0.7 mg/dL 0.3-1.0 [facility] Comment on above: Performed By: #### C BC, CMP, LIPID, T4F, TSH3, A1C WT eA #### [facility] [address] Calcium [Mass/volume] in Ser um or PlasmaOrdered By: Fabio Gauthier on 11-05-2023 Calcium [Mass/Vol] 10.3 mg/dL 8.6-10.3 [facility] Comment on above: Performed By: #### C BC, CMP, LIPID, T4F, TSH3, A1C WTH eA #### [address] Carbon dioxide, total [Moles /volume] in Serum or PlasmaOrdered By: Fabio Gauthier on 11-05-2023 CO2 [Moles/Vol] 25.6 mmol/L 21.0-31.0 [facility] Comment on above: Performed By: #### C BC, CMP, LIPID, T4F, TSH3, A1C [facility] eA #### [facility] [address] [place] [id number] [place] Chloride [Moles/volume] in S lupis or PlasmaOrdered By: Fabio Gauthier on 11-05-2023 Chloride [Moles/Vol] 107 mmol/L 98-107 [facility] Comment on above: Performed By: #### C BC, CMP, LIPID, T4F, TSH3, A1C WT eA #### [facility] [address] [place] [id number] [place] Cholesterol [Mass/volume] in Serum or PlasmaOrdered By: Fabio Gauthier on 11-05-2023 Cholesterol [Mass/Vol] 193 mg/dL 140-200 [facility] Comment on above: Chol less than 200 m g/dl low riskChol 201-239 mg/dl borderline riskChol 240 mg/dl and greater high risk Result Comment: Chol less than 200 mg/dl low risk Chol 201-239 mg/dl borderline risk Chol 240 mg/dl and greater high risk Performed By: #### C BC, CMP, LIPID, T4F, TSH3, A1C [facility] eA #### [facility] [address] [place] [id number] [place] Cholesterol in LDL Calc [Mas s/Vol]Ordered By: Fabio Gauthier on 11-05-2023 Cholesterol in LDL [Mass/Vol] 114 mg/dL High 0-100 [facility] Comment on above: LDL ATP III CLASSIFI CATIONLDL less than 100 mg/dL OptimalLDL 100-129 mg/dL Near or above optimalLDL 130-159 mg/dL Borderline highLDL 160-189 mg/dL HighLDL greater than 189 mg/dL Very high Cholesterol in VLDL Calc [Ma ss/Vol]Ordered By: Fabio Gauthier on 11-05-2023 Cholesterol in VLDL [Mass/Vol] 17 mg/dL [facility] Complete Blood Count Auto Di ffon 11-05-2023 Mean Corpuscular HGB Conc 33.6 g/dL Normal 32.0-35.0 [facility] Comment on above: Performed By: #### C BC, CMP, LIPID, T4F, TSH3, A1C WTH eA #### [address] NRBC% 0.3 /100{WBC} Normal 0-0.5 [facility] Comment on above: Performed By: #### C BC, CMP, LIPID, T4F, TSH3, A1C WTH eA #### [address] Comprehensive Metabolic Pane sherry 11-05-2023 Albumin [Mass/Vol] 5.2 g/dL Normal 3.5-5.7 [facility] Comment on above: Performed By: #### C BC, CMP, LIPID, T4F, TSH3, A1C WTH eA #### [address] GFR/1.73 sq M.predicted MDRD (S/P/Bld) [Vol rate/Area] mL/min/{1.73_m2} Normal [facility] Comment on above: Performed By: #### C BC, CMP, LIPID, T4F, TSH3, A1C WTH eA #### [address] Creatinine [Mass/volume] in Serum or PlasmaOrdered By: Fabio Gauthier on 11-05-2023 Creatinine [Mass/Vol] 0.59 mg/dL Low 0.60-1.20 [facility] Comment on above: Performed By: #### C BC, CMP, LIPID, T4F, TSH3, A1C WTH eA #### [address] Erythrocyte distribution wid th [Ratio] by Automated countOrdered By: Fabio Gauthier on 11-05-2023 Erythrocyte distribution width (RBC) [Ratio] 12.2 % 11.9-15.3 [facility] Comment on above: Performed By: #### C BC, CMP, LIPID, T4F, TSH3, A1C WTH eA #### [place] [id number] [place] Erythrocytes [#/volume] in B lood by Automated countOrdered By: Fabio Gauthier on 11-05-2023 RBC (Bld) [#/Vol] 5.40 10*6/uL High 3.60-5.00 [facility] Comment on above: Performed By: #### C BC, CMP, LIPID, T4F, TSH3, A1C WTH eA #### [facility] [address] Glucose [Mass/volume] in Ser um or PlasmaOrdered By: Fabio Gauthier on 11-05-2023 Glucose [Mass/Vol] 113 mg/dL High 70-100 [facility] Comment on above: ADA recommended refe rence rangeRandom Glucose Reference Range is dependent on time and content of last meal. Glucose of more than 200 mg/dL in a nonstressed, ambulatory subject supports the diagnosis of Diabetes Mellitus. Result Comment: [place] om Glucose Reference Range is dependent on time and content of last meal. Glucose of more than 200 mg/dL in a nonstressed, ambulatory subject supports the diagnosis of Diabetes Mellitus. ADA recommended reference range Performed By: #### C BC, CMP, LIPID, T4F, TSH3, A1C WT eA #### [facility] [address] Glucose mean value [Mass/vol ume] in Blood Estimated from glycated hemoglobinOrdered By: Fabio Gauthier on 11-05-2023 Average glucose Estimated from glycated hemoglobin (Bld) [Mass/Vol] 123 mg/dL [facility] Hematocrit [Volume Fraction] of Blood by Automated countOrdered By: Fabio Gauthier on 11-05-2023 Hematocrit (Bld) [Volume fraction] 44.8 % 34.0-46.4 [facility] Comment on above: Performed By: #### C BC, CMP, LIPID, T4F, TSH3, A1C WT eA #### [facility] [address] [place] [address] [place] Hemoglobin [Mass/volume] in BloodOrdered By: Fabio Gauthier on 11-05-2023 Hemoglobin (Bld) [Mass/Vol] 15.1 g/dL 11.8-15.4 [facility] Comment on above: Performed By: #### C BC, CMP, LIPID, T4F, TSH3, A1C WTH eA #### [facility] [address] Leukocytes [#/volume] correc mecca for nucleated erythrocytes in Blood by Automated counOrdered By: Fabio Gauthier on 11-05-2023 WBC corrected for nucl RBC Auto (Bld) [#/Vol] 11.3 10*3/uL 3.8-11.6 [facility] Leukocytes [#/volume] in Blo od by Automated countOrdered By: Fabio Gauthier on 11-05-2023 WBC (Bld) [#/Vol] 11.3 10*3/uL 3.8-11.6 [facility] Comment on above: Performed By: #### C BC, CMP, LIPID, T4F, TSH3, A1C WTH eA #### [facility] [address] Lipid Panelon 11-05-2023 LDL Cholesterol,Calculated 114 mg/dL High 0-100 [facility] Comment on above: Result Comment: LDL ATP III CLASSIFICATION LDL less than 100 mg/dL Optimal LDL 100-129 mg/dL Near or above optimal LDL 130-159 mg/dL Borderline high LDL 160-189 mg/dL High LDL greater than 189 mg/dL Very high Performed By: #### C BC, CMP, LIPID, T4F, TSH3, A1C WTH eA #### [facility] [address] Triglyceride w/Reflex 88 mg/dL Normal 0-149 [facility] Comment on above: Result Comment: TRIG ATP III CLASSIFICATION TRIG less than 150 mg/dL Normal TRIG 150-199 mg/dL Borderline high TRIG 200-500 mg/dL High TRIG greater than 500 mg/dL Very high Standard traceable to the Center for Disease Conrtrol and Prevention (CDC) test method. Performed By: #### C BC, CMP, LIPID, T4F, TSH3, A1C WTH eA #### [facility] [address] [place] [id number] [facility] VLDL CHOLESTEROL 17 mg/dL Normal [facility] Comment on above: Performed By: #### C BC, CMP, LIPID, T4F, TSH3, A1C WTH eA #### [address] Lymphocytes [#/volume] in Bl ood by Automated countOrdered By: Fabio Gauthier on 11-05-2023 Lymphocytes (Bld) [#/Vol] 2.1 10*3/uL 1.00-4.8 [facility] Comment on above: Performed By: #### C BC, CMP, LIPID, T4F, TSH3, A1C WTH eA #### [address] Lymphocytes/100 leukocytes i n Blood by Automated countOrdered By: Fabio Gauthier on 11-05-2023 Lymphocytes/100 WBC (Bld) 18.5 % . [facility] Comment on above: Performed By: #### C BC, CMP, LIPID, T4F, TSH3, A1C WTH eA #### [address] MCH [Entitic mass] by Automa mecca countOrdered By: Fabio Gauthier on 11-05-2023 MCH (RBC) [Entitic mass] 27.9 pg 24.7-34.3 [facility] Comment on above: Performed By: #### C BC, CMP, LIPID, T4F, TSH3, A1C WTH eA #### [address] MCHC Auto (RBC) [Mass/Vol]Or dered By: Fabio Gauthier on 11-05-2023 MCHC (RBC) [Mass/Vol] 33.6 g/dL 32.0-35.0 [facility] MCV [Entitic volume] by Auto mated countOrdered By: Fabio Gauthier on 11-05-2023 MCV (RBC) [Entitic vol] 82.8 fL 80-[address] [facility] Comment on above: Performed By: #### C BC, CMP, LIPID, T4F, TSH3, A1C WTH eA #### [address] Neutrophils [#/volume] in Bl ood by Automated countOrdered By: Fabio Gauthier on 11-05-2023 Neutrophils (Bld) [#/Vol] 8.6 10*3/uL High 1.8-7.7 [facility] Comment on above: Performed By: #### C BC, CMP, LIPID, T4F, TSH3, A1C WTH eA #### [facility] [address] No Panel InformationOrdered By: Fabio Gauthier on 11-05-2023 Estimated GFR (CKD-EPI) > 60.0 mL/Min [facility] Creatinine Clearance (Chem N/A [facility] Nucleated erythrocytes [Pres ence] in Blood by Automated countOrdered By: Fabio Gauthier on 11-05-2023 Nucleated RBC Auto Ql (Bld) 0.3 /100{WBC} 0-0.5 [facility] Platelet mean volume [Entiti c volume] in Blood by Automated countOrdered By: Fabio Gauthier on 11-05-2023 Platelet mean volume (Bld) [Entitic vol] 9.0 fL 6.3-10.7 [facility] Comment on above: Performed By: #### C BC, CMP, LIPID, T4F, TSH3, A1C WTH eA #### [facility] [address] Platelets [#/volume] in Bloo d by Automated countOrdered By: Fabio Gauthier on 11-05-2023 Platelets (Bld) [#/Vol] 289 10*3/uL 150-450 [facility] Comment on above: Performed By: #### C BC, CMP, LIPID, T4F, TSH3, A1C WTH eA #### [facility] [address] [place] [address] [place] Potassium [Moles/volume] in Serum or PlasmaOrdered By: Fabio Gauthier on 11-05-2023 Potassium [Moles/Vol] 4.3 mmol/L 3.5-5.1 [facility] Comment on above: Performed By: #### C BC, CMP, LIPID, T4F, TSH3, A1C WTH eA #### [facility] [address] Protein [Mass/volume] in Ser um or PlasmaOrdered By: Fabio Gauthier on 11-05-2023 Protein [Mass/Vol] 7.9 g/dL 6.4-8.9 [facility] Comment on above: Performed By: #### C BC, CMP, LIPID, T4F, TSH3, A1C WT eA #### [facility] [address] Serum globulin measurement b y calculation (mass/volume)Ordered By: Fabio Gauthier on 11-05-2023 Globulin (S) [Mass/Vol] 2.7 g/dL [facility] Comment on above: Performed By: #### C BC, CMP, LIPID, T4F, TSH3, A1C WT eA #### [address] Serum or plasma albumin/glob ulin mass ratioOrdered By: Fabio Gauthier on 11-05-2023 Albumin/Globulin [Mass ratio] 1.9 {ratio} [facility] Comment on above: Performed By: #### C BC, CMP, LIPID, T4F, TSH3, A1C WT eA #### [address] Serum or plasma anion gap de terminationOrdered By: Fabio Gauthier on 11-05-2023 Anion gap [Moles/Vol] 13.7 mmol/L 6.0-15.0 [facility] Comment on above: Performed By: #### C BC, CMP, LIPID, T4F, TSH3, A1C WT eA #### [facility] [address] [place] [address] Serum or plasma high density lipoprotein (HDL) cholesterol measurementOrdered By: Fabio Gauthier on 11-05-2023 Cholesterol in HDL [Mass/Vol] 61 mg/dL - [facility] Comment on above: HDL CHOL ATP-III CLA SSIFICATION Cardiovascular RiskHDL > or equal to 60 mg/dL LOWHDL < 40 mg/dL HIGH Result Comment: HDL CHOL ATP-III CLASSIFICATION Cardiovascular Risk HDL > or equal to 60 mg/dL LOW HDL < 40 mg/dL HIGH Performed By: #### C BC, CMP, LIPID, T4F, TSH3, A1C WT eA #### [facility] [address] Serum or plasma total choles terol/high density lipoprotein (HDL) cholesterol mass ratOrdered By: Fabio Gauthier on 11-05-2023 Cholesterol.total/Poornima sterol in HDL [Mass ratio] 3.2 {ratio} <5.0 [facility] Comment on above: Performed By: #### C BC, CMP, LIPID, T4F, TSH3, A1C WT eA #### [facility] [address] Sodium [Moles/volume] in Ser um or PlasmaOrdered By: Fabio Gauthier on 11-05-2023 Sodium [Moles/Vol] 142 mmol/L 136-145 [facility] Comment on above: Performed By: #### C BC, CMP, LIPID, T4F, TSH3, A1C WT eA #### [address] Thyrotropin [Units/volume] i n Serum or PlasmaOrdered By: Fabio Gauthier on 11-05-2023 TSH Qn 2.55 m[IU]/L 0.45-5.33 [facility] Comment on above: Result Comment: PERF ORMED BY: [place] [address] PATHOLOGIST FIELD [employer] ARIC SHEN M.D. Performed By: #### C BC, CMP, LIPID, T4F, TSH3, A1C WTH eA #### [address] Thyroxine (T4) free [Mass/vo lume] in Serum or PlasmaOrdered By: Fabio Gauthier on 11-05-2023 Free T4 [Mass/Vol] 0.77 ng/dL 0.61-1.12 [facility] Comment on above: Performed By: #### C BC, CMP, LIPID, T4F, TSH3, A1C WTH eA #### [facility] [address] [place] [id number] [facility] Triglyceride [Mass/volume] i n Serum or PlasmaOrdered By: Fabio Gauthier on 11-05-2023 Triglyceride [Mass/Vol] 88 mg/dL 0-[address] [facility] Comment on above: TRIG ATP III CLASSIF ICATIONTRIG less than 150 mg/dL NormalTRIG 150-199 mg/dL Borderline highTRIG 200-500 mg/dL High TRIG greater than 500 mg/dL Very highStandard traceable to the Center for Disease Conrtrol and Prevention (CDC) test method. Urea nitrogen [Mass/volume] in Serum or PlasmaOrdered By: Fabio Gauthier on 11-05-2023 Urea nitrogen [Mass/Vol] 12 mg/dL 10-03 [facility] Comment on above: Performed By: #### C BC, CMP, LIPID, T4F, TSH3, A1C [facility] eA #### [facility] [address] [place] [id number] [facility] COVID + FLU Quick Testingon 04-20-2023 SARS-CoV-2 (COVID-19) RNA SUSHMA+probe Ql (Unsp spec) Positive Scan•Jour Other COVID + FLU Quick Testing Negative Scan•Jour Other Quick Strepon 04-20-2023 S. pyogenes Org specific cx Ql (Throat) Negative Red Aril Other Quick Strep Scan•Jour Other RSVon 04-20-2023 RSV Ag IA Ql (Unsp spec) Negative Scan•Jour Other Alanine aminotransferase [En zymatic activity/volume] in Serum or PlasmaOrdered By: Fabio Gauthier on 08-14-2022 ALT [Catalytic activity/Vol] 44 U/L [facility] Albumin [Mass/volume] in Ser um or Plasma by Bromocresol green (BCG) dye binding methoOrdered By: Fabio Gauthier on 08-14-2022 Albumin BCG dye [Mass/Vol] 4.8 g/dL 3.5-5.7 [facility] Alkaline phosphatase [Enzyma tic activity/volume] in Serum or PlasmaOrdered By: Fabio Gauthier on 08-14-2022 ALP [Catalytic activity/Vol] 112 U/L 34-104 [facility] Aspartate aminotransferase [ Enzymatic activity/volume] in Serum or PlasmaOrdered By: Faibo Gauthier on 08-14-2022 AST [Catalytic activity/Vol] 26 U/L 13-39 [facility] Basophils Auto (Bld) [#/Vol] Ordered By: Fabio Gauthier on 08-14-2022 Basophils (Bld) [#/Vol] 0.1 10*3/uL 0.0-0.2 [facility] Basophils/100 WBC Auto (Bld) Ordered By: Fabio Gauthier on 08-14-2022 Basophils/100 WBC (Bld) 0.9 % . [facility] Bilirubin.total [Mass/volume ] in Serum or PlasmaOrdered By: Fabio Gauthier on 08-14-2022 Bilirubin [Mass/Vol] 0.9 mg/dL 0.3-1.0 [facility] Calcium [Mass/volume] in Ser um or PlasmaOrdered By: Fabio Gauthier on 08-14-2022 Calcium [Mass/Vol] 9.5 mg/dL 8.6-10.3 [facility] Carbon dioxide, total [Moles /volume] in Serum or PlasmaOrdered By: Fabio Gauthier on 08-14-2022 CO2 [Moles/Vol] 26.6 mmol/L 21.0-31.0 [facility] Chloride [Moles/volume] in S lupis or PlasmaOrdered By: Fabio Gauthier on 08-14-2022 Chloride [Moles/Vol] 106 mmol/L 98-107 [facility] Cholesterol [Mass/volume] in Serum or PlasmaOrdered By: Fabio Gauthier on 08-14-2022 Cholesterol [Mass/Vol] 192 mg/dL 140-200 [facility] Comment on above: Chol less than 200 m g/dl low riskChol 201-239 mg/dl borderline riskChol 240 mg/dl and greater high risk Cholesterol in LDL Calc [Mas s/Vol]Ordered By: Fabio Gauthier on 08-14-2022 Cholesterol in LDL [Mass/Vol] 100 mg/dL 0-100 [facility] Comment on above: LDL ATP III CLASSIFI CATIONLDL less than 100 mg/dL OptimalLDL 100-129 mg/dL Near or above optimalLDL 130-159 mg/dL Borderline highLDL 160-189 mg/dL HighLDL greater than 189 mg/dL Very high Cholesterol in VLDL Calc [Ma ss/Vol]Ordered By: Fabio Gauthier on 08-14-2022 Cholesterol in VLDL [Mass/Vol] 33 mg/dL [facility] Creatinine [Mass/volume] in Serum or PlasmaOrdered By: Fabio Gauthier on 08-14-2022 Creatinine [Mass/Vol] 0.47 mg/dL 0.60-1.20 [facility] Eosinophils Auto (Bld) [#/Vo l]Ordered By: Fabio Gauthier on 08-14-2022 Eosinophils (Bld) [#/Vol] 0.4 10*3/uL 0.0-0.45 [facility] Eosinophils/100 WBC Auto (Bl d)Ordered By: Fabio Gauthier on 08-14-2022 Eosinophils/100 WBC (Bld) 5.3 % . [facility] Erythrocyte distribution wid th Auto (RBC) [Ratio]Ordered By: Fabio Gauthier on 08-14-2022 Erythrocyte distribution width (RBC) [Ratio] 12.7 % 11.9-15.3 [facility] Ferritin [Mass/volume] in Se rum or PlasmaOrdered By: Fabio Gauthier on 08-14-2022 Ferritin [Mass/Vol] 138.6 ng/mL 11.0-306.8 [facility] Follitropin [Units/volume] i n Serum or PlasmaOrdered By: Fabio Gauthier on 08-14-2022 Follitropin Qn 28.0 m[IU]/mL [facility] Comment on above: FEMALE NORMALS (RUBIA ENOPAUSE) MID-FOLLICULAR PHASE: 3.9-8.8 mIU/mL MID-CYCLE PEAK: 4.5-22.5 mIU/mL MID-LUTEAL PHASE: 1.8-5.1 mIU/mLFEMALE NORMALS (POSTMENOPAUSE): 16.7-113.6 mIU/mLMALE NORMALS: 1.3-19.3 mIU/mL Globulin Calc (S) [Mass/Vol] Ordered By: Fabio Gauthier on 08-14-2022 Globulin (S) [Mass/Vol] 2.8 g/dL [facility] Glucose [Mass/volume] in Ser um or PlasmaOrdered By: Fabio Gauthier on 08-14-2022 Glucose [Mass/Vol] 104 mg/dL 70-100 [facility] Comment on above: ADA recommended refe rence rangeRandom Glucose Reference Range is dependent on time and content of last meal. Glucose of more than 200 mg/dL in a nonstressed, ambulatory subject supports the diagnosis of Diabetes Mellitus. Hematocrit Auto (Bld) [Volum e fraction]Ordered By: Fabio Gauthier on 08-14-2022 Hematocrit (Bld) [Volume fraction] 43.9 % 34.0-46.4 [facility] Hemoglobin [Mass/volume] in BloodOrdered By: Fabio Gauthier on 08-14-2022 Hemoglobin (Bld) [Mass/Vol] 14.9 g/dL 11.8-15.4 [facility] Iron [Mass/volume] in Serum or PlasmaOrdered By: Fabio Gauthier on 08-14-2022 Iron [Mass/Vol] 160 ug/dL 50-212 [facility] Iron binding capacity [Mass/ volume] in Serum or PlasmaOrdered By: Fabio Gauthier on 08-14-2022 Iron binding capacity [Mass/Vol] 402 ug/dL 255-450 [facility] Iron saturation [Mass Fracti on] in Serum or PlasmaOrdered By: Fabio Gauthier on 08-14-2022 Iron saturation [Mass fraction] 39.8 % 20-50 [facility] Leukocytes [#/volume] correc mecca for nucleated erythrocytes in Blood by Automated counOrdered By: Fabio Gauthier on 08-14-2022 WBC corrected for nucl RBC Auto (Bld) [#/Vol] 7.2 10*3/uL 3.8-11.6 [facility] Lymphocytes Auto (Bld) [#/Vo l]Ordered By: Fabio Gauthier on 08-14-2022 Lymphocytes (Bld) [#/Vol] 2.2 10*3/uL 1.00-4.8 [facility] Lymphocytes/100 WBC Auto (Bl d)Ordered By: Fabio Gauthier on 08-14-2022 Lymphocytes/100 WBC (Bld) 30.6 % . [facility] MCH Auto (RBC) [Entitic mass ]Ordered By: Fabio Gauthier on 08-14-2022 MCH (RBC) [Entitic mass] 27.7 pg 24.7-34.3 [facility] MCHC Auto (RBC) [Mass/Vol]Or dered By: Fabio Gauthier on 08-14-2022 MCHC (RBC) [Mass/Vol] 34.0 g/dL 32.0-35.0 [facility] MCV Auto (RBC) [Entitic vol] Ordered By: Fabio Gatuhier on 08-14-2022 MCV (RBC) [Entitic vol] 81.7 fL 80-[address] [facility] Monocytes Auto (Bld) [#/Vol] Ordered By: Fabio Gauthier on 08-14-2022 Monocytes (Bld) [#/Vol] 0.5 10*3/uL 0.0-0.8 [facility] Monocytes/100 WBC Auto (Bld) Ordered By: Fabio Gauthier on 08-14-2022 Monocytes/100 WBC (Bld) 6.6 % . [facility] Neutrophils Auto (Bld) [#/Vo l]Ordered By: Fabio Gauthier on 08-14-2022 Neutrophils (Bld) [#/Vol] 4.1 10*3/uL 1.8-7.7 [facility] Neutrophils/100 WBC Auto (Bl d)Ordered By: Fabio Gauthier on 08-14-2022 Neutrophils/100 WBC (Bld) 56.6 % . [facility] No Panel InformationOrdered By: Fabio Gauthier on 08-14-2022 Estimated GFR (CKD-EPI) > 60.0 mL/Min [facility] Creatinine Clearance (Chem N/A [facility] Nucleated erythrocytes [Pres ence] in Blood by Automated countOrdered By: Fabio Gauthier on 08-14-2022 Nucleated RBC Auto Ql (Bld) 0.1 /100{WBC} 0-0.5 [facility] Platelet mean volume Auto (B ld) [Entitic vol]Ordered By: Fabio Gauthier on 08-14-2022 Platelet mean volume (Bld) [Entitic vol] 9.0 fL 6.3-10.7 [facility] Platelets Auto (Bld) [#/Vol] Ordered By: Fabio Gauthier on 08-14-2022 Platelets (Bld) [#/Vol] 245 10*3/uL 150-450 [facility] Potassium [Moles/volume] in Serum or PlasmaOrdered By: Fabio Gauthier on 08-14-2022 Potassium [Moles/Vol] 3.8 mmol/L 3.5-5.1 [facility] Protein [Mass/volume] in Ser um or PlasmaOrdered By: Fabio Gauthier on 08-14-2022 Protein [Mass/Vol] 7.6 g/dL 6.4-8.9 [facility] RBC Auto (Bld) [#/Vol]Ordere d By: Fabio Gauthier on 08-14-2022 RBC (Bld) [#/Vol] 5.38 10*6/uL 3.60-5.00 [facility] Serum or plasma albumin/glob ulin mass ratioOrdered By: Fabio Gauthier on 08-14-2022 Albumin/Globulin [Mass ratio] 1.7 {ratio} [facility] Serum or plasma anion gap de terminationOrdered By: Fabio Gauthier on 08-14-2022 Anion gap [Moles/Vol] 12.2 mmol/L 6.0-15.0 [facility] Serum or plasma estradiol (E 2) measurement (mass/volume)Ordered By: Fabio Gauthier on 08-14-2022 E2 [Mass/Vol] pg/mL . [facility] Comment on above: Adult Female: Follic ular phase 12.5 - 166.0 Ovulation phase 85.8 - 498.0 Luteal phase 43.8 - 211.0 Postmenopausal <6.0 - 54.7 1st trimester 215.0 - >4300.0Roche ECLIA methodologyPerformed at: - [facility] [address] [id number] Director: Galo Nance PhD, Phone: [phone] Serum or plasma high density lipoprotein (HDL) cholesterol measurementOrdered By: Fabio Gauthier on 08-14-2022 Cholesterol in HDL [Mass/Vol] 59 mg/dL 23-92 [facility] Comment on above: HDL CHOL ATP-III CLA SSIFICATION Cardiovascular RiskHDL > or equal to 60 mg/dL LOWHDL < 40 mg/dL HIGH Serum or plasma total choles terol/high density lipoprotein (HDL) cholesterol mass ratOrdered By: Fabio Gauthier on 08-14-2022 Cholesterol.total/Poornima sterol in HDL [Mass ratio] 3.3 {ratio} <5.0 [facility] Sodium [Moles/volume] in Ser um or PlasmaOrdered By: Fabio Gauthier on 08-14-2022 Sodium [Moles/Vol] 141 mmol/L 136-145 [facility] Thyrotropin [Units/volume] i n Serum or PlasmaOrdered By: Fabio Gauthier on 08-14-2022 TSH Qn 2.35 m[IU]/L 0.45-5.33 [facility] Thyroxine (T4) free [Mass/vo lume] in Serum or PlasmaOrdered By: Fabio Gauthier on 08-14-2022 Free T4 [Mass/Vol] 0.73 ng/dL 0.61-1.12 [facility] Transferrin [Mass/volume] in Serum or PlasmaOrdered By: Fabio Gauthier on 08-14-2022 Transferrin [Mass/Vol] 287 mg/dL 203-362 [facility] Triglyceride [Mass/volume] i n Serum or PlasmaOrdered By: Fabio Gauthier on 08-14-2022 Triglyceride [Mass/Vol] 167 mg/dL 0-[address] [facility] Comment on above: TRIG ATP III CLASSIF ICATIONTRIG less than 150 mg/dL NormalTRIG 150-199 mg/dL Borderline highTRIG 200-500 mg/dL High TRIG greater than 500 mg/dL Very highStandard traceable to the Center for Disease Conrtrol and Prevention (CDC) test method. Urea nitrogen [Mass/volume] in Serum or PlasmaOrdered By: Fabio Gauthier on 08-14-2022 Urea nitrogen [Mass/Vol] 14 mg/dL 7-25 [facility] Vitamin D+Metabolites [Mass/ volume] in Serum or PlasmaOrdered By: Fabio Gauthier on 08-14-2022 Vitamin D+Metabolites [Mass/Vol] 78.9 ng/mL 30-100 [facility] Comment on above: VITAMIN D STATUS 25( OH)VITAMIN D RANGE (ng/mL) Deficient <20 Insufficient 20 to <30Sufficient 30 to 100Reference: Mannie MF,Stephen GIRARD, Luis F MELCHOR, et al. Evaluation,treatment, and prevention of vitamin D deficiency; an Endocrine Society clinical practice guideline. JCEM. 2010; 96(7):1911-30. WBC Auto (Bld) [#/Vol]Ordere d By: Fabio Gauthier on 08-14-2022 WBC (Bld) [#/Vol] 7.2 10*3/uL 3.8-11.6 [facility] A1C HEMOGLOBINon 08-10-2022 HbA1c (Bld) [Mass fraction] 5.4 % Scan•Jour Other HbA1c (Bld) [Mass fraction]o n 08-10-[address] [facility] Other COVID-19 SOFIAOrdered By: Yolette Joseph on 10-24-2021 SARS-CoV+SARS-CoV-2 (COVID-19) Ag IA.rapid Ql (Resp) Negative Negative [facility] Comment on above: This is a duplicate Swathi SARS Antigen (MELANIE) result to be used for statistical tracking purpose only. No Panel InformationOrdered By: Fanny Joseph on 10-24-2021 SARS Antigen (LFIA) [facility] COVID + FLU Quick Testingon 03-09-2021 SARS-CoV-2 (COVID-19) RNA SUSHMA+probe Ql (Unsp spec) Negative Scan•Jour Other COVID + FLU Quick Testing Positive Scan•Jour Other COVID + FLU Quick Testing Negative Scan•Jour Other COVID Quick Testingon 2020 Result Positive Scan•Jour Other Vital Signs Date Time Vital Sign Value Performing Clinician Facility 11-02-2023 11:19-0400 Body height 154.94 cm [facility] 11-02-2023 11:19-0400 Body mass index (BMI) [Ratio] 28.7 kg/m2 [facility] 11-02-2023 11:19-0400 Body weight 68.94 kg [facility] 11-02-2023 11:19-0400 Diastolic blood pressure 76 mm[Hg] [facility] 11-02-2023 11:19-0400 Heart rate 79 /min [facility] 11-02-2023 11:19-0400 Respiratory rate 16 /min [facility] 11-02-2023 11:19-0400 SaO2% (BldA) [Mass fraction] 96 % [facility] 11-02-2023 11:19-0400 Systolic blood pressure 126 mm[Hg] [facility] 09-25-2022 12:45-0400 Body height 165.1 cm Fabio Gauthier Other [employer] [facility] [employer] Other 09-25-2022 12:45-0400 Body mass index (BMI) [Ratio] 25.12 kg/m2 Fabio Gauthier Other Scan•Jour Other 09-25-2022 12:45-0400 Body weight 68.49 kg Fabio Gauthier Other Scan•Jour Other 09-25-2022 12:45-0400 Diastolic blood pressure 80 mm[Hg] Fabio Gauthier Other Scan•Jour Other 09-25-2022 12:45-0400 Respiratory rate 16 /min Fabio Gauthier Other Scan•Jour Other 09-25-2022 12:45-0400 SaO2% (BldA) [Mass fraction] 97 % Fabio Gauthier Other Scan•Jour Other 09-25-2022 12:45-0400 Systolic blood pressure 126 mm[Hg] Fabio Gauthier Other Scan•Jour Other 08-10-2022 13:30-0400 Body height 165.1 cm Fabio Gauthier Other Scan•Jour Other 08-10-2022 13:30-0400 Diastolic blood pressure 82 mm[Hg] Fabio Gauthier Other Scan•[facility] Other 08-10-2022 13:30-0400 Respiratory rate 16 /min Fabio Gauthier Other Scan•Jour Other 08-10-2022 13:30-0400 SaO2% (BldA) [Mass fraction] 98 % Fabio Gauthier Other Scan•Jour Other 08-10-2022 13:30-0400 Systolic blood pressure 128 mm[Hg] Fabio Gauthier Other [facility] Other 11-10-2021 13:30-0400 Body height 165.1 cm Fabio Gauthier Other Scan•Jour Other 11-10-2021 13:30-0400 Body mass index (BMI) [Ratio] 23.76 kg/m2 Fabio Gauthier Other Scan•[facility] Other 11-10-2021 13:30-0400 Body weight 64.77 kg Fabio Gauthier Other Scan•Jour Other 11-10-2021 13:30-0400 Diastolic blood pressure 84 mm[Hg] Fabio Gauthier Other [facility] [employer] Other 11-10-2021 13:30-0400 Respiratory rate 16 /min Fabio Gauthier Other [facility] [employer] Other 11-10-2021 13:30-0400 SaO2% (BldA) [Mass fraction] 96 % Fabio Gauthier Other [facility] [employer] Other 11-10-2021 13:30-0400 Systolic blood pressure 122 mm[Hg] Fabio Gauthier Other [facility] [employer] Other 10-24-2021 12:20-0400 Diastolic blood pressure 105 mm[Hg] DO Fabio Copelands Work Phone: [facility] 10-24-2021 12:20-0400 Heart rate 93 /min DO Fabio Copelands Work Phone: [facility] 10-24-2021 12:20-0400 Respiratory rate 18 /min DO Fabio Copelands Work Phone: [facility] 10-24-2021 12:20-0400 SaO2% (BldA) [Mass fraction] 99 % DO Fabio Gauthier Work Phone: [facility] 10-24-2021 12:20-0400 Systolic blood pressure 157 mm[Hg] DO Fabiojenae Copelands Work Phone: [facility] 10-24-2021 09:37-0400 Body height 157.48 cm DO Fabio Mins Work Phone: [facility] 10-24-2021 09:37-0400 Body temperature 97.8 [degF] DO Fabio Mins Work Phone: [facility] 10-24-2021 09:37-0400 Body weight 64.86 kg DO Fabio Mins Work Phone: [facility] 06-22-2021 11:45-0400 Body height 165.1 cm Fabio Gauthier Other Scan[facility] Other 06-22-2021 11:45-0400 Body mass index (BMI) [Ratio] 23.79 kg/m2 Fabio Gauthier Other [facility] Other 06-22-2021 11:45-0400 Body weight 64.86 kg Fabio Gauthier Other [facility] Other 06-22-2021 11:45-0400 Diastolic blood pressure 82 mm[Hg] Fabio Gauthier Other [facility] Other 06-22-2021 11:45-0400 Respiratory rate 16 /min Fabio Gauthier Other [facility] Other 06-22-2021 11:45-0400 SaO2% (BldA) [Mass fraction] 97 % Fabio Gauthier Other [facility] Other 06-22-2021 11:45-0400 Systolic blood pressure 122 mm[Hg] Fabio Gauthier Other Scan[facility] Other Encounters Encounter Date Encounter Type Care Provider Facility Start: 01-04-2024 End: 01-04-2024 ambulatory DO Fabio Gauthier Work Phone: [facility] Work Phone: Start: 01-04-2024 End: 01-04-2024 Patient encounter procedure DO Fabio Gauthier Work Phone: [facility] [place] Work Phone: Start: 11-09-2023 End: 11-09-2023 Patient encounter procedure DO Fabio Gauthier Work Phone: [facility] Work Phone: Start: 11-09-2023 End: 11-09-2023 ambulatory Fabio Gauthier Facility:[facility] Start: 11-05-2023 End: 11-05-2023 Patient encounter procedure DO Fabio Gauthier Work Phone: [facility] [place] Work Phone: Start: 11-05-2023 End: 11-05-2023 ambulatory DO Fabio Gauthier Work Phone: [facility] Work Phone: Start: 11-02-2023 End: 11-02-2023 ambulatory [facility] Work Phone: Start: 11-02-2023 End: 11-02-2023 Patient encounter procedure [facility] [place] Work Phone: Start: 04-20-2023 End: 04-20-2023 ambulatory Fabio Gauthier Other [facility] Other Start: 04-20-2023 Nursing evaluation o f patient and report Fabio Gauthier [facility] [place] Start: 04-17-2023 End: 04-17-2023 ambulatory Fabio Gauthier Other [facility] Other Start: 04-17-2023 Telephone encounter Fabio Gauthier [facility] [place] Start: 11-07-2022 End: 11-07-2022 ambulatory DO Fabio Copelandkarina Work Phone: [facility] Work Phone: Start: 11-07-2022 End: 11-07-2022 Patient encounter procedure DO [facility]auth[facility] Work [facility]: Start: 09-25-2022 End: 09-25-2022 ambulatory Fabio Gauthier Other [facility] Other Start: 09-25-2022 Office outpatient vi sit 15 minutes Fabio Gauthier [facility] [place] Start: 08-14-2022 End: 08-14-2022 ambulatory DO Fabio Gauthier Work Phone: [facility] Work Phone: Start: 08-14-2022 End: 08-14-2022 Patient encounter procedure DO Fabio Gauthier Work Phone: [facility] [place] Work Phone: Start: 08-10-2022 End: 08-10-2022 ambulatory Fabio Gauthier Other [facility] Other Start: 08-10-2022 Office outpatient vi sit 25 minutes Fabio Gauthier [facility] [place] Start: 05-23-2022 End: 05-23-2022 ambulatory Fabio Gauthier Other [facility] Other Start: 05-23-2022 Telephone encounter Fabio Gauthier [facility] [place] Start: 03-28-2022 End: 03-28-2022 ambulatory Fabio Gauthier Other [facility] Other Start: 03-28-2022 Telephone encounter Fabio Gauthier [facility] [place] Start: 03-14-2022 End: 03-14-2022 ambulatory Faibo Gauthier Other [facility] Other Start: 03-14-2022 Telephone encounter Fabio Gauthier [facility] [place] Start: 11-10-2021 End: 11-10-2021 ambulatory Fabio Gauthier Other [facility] Other Start: 11-10-2021 Office outpatient vi sit 15 minutes Fabio Gauthier [facility] [place] Start: 11-04-2021 End: 11-04-2021 ambulatory Fabio Gauthier Other [facility] Other Start: 11-04-2021 Telephone encounter Fabio Gauthier [facility] [place] Start: 10-24-2021 End: 10-24-2021 Emergency department patient visit DO Fabio Gauthier Work Phone: [facility] Start: 10-19-2021 End: 10-19-2021 Patient encounter procedure DO Fabio Gauthier Work Phone: [facility] Start: 10-14-2021 End: 10-14-2021 Patient encounter procedure DO Fabio Gauthier Work Phone: [facility] Start: 09-27-2021 End: 09-27-2021 ambulatory Fabio Gauthier Other [facility] Other Start: 09-27-2021 Telephone encounter Fabio Gauthier [facility] [place] Start: 07-21-2021 End: 07-21-2021 ambulatory Fabio Gauthier Other [facility] Other Start: 07-21-2021 Telephone encounter Fabio Gauthier [facility] [place] Start: 06-22-2021 End: 06-22-2021 ambulatory Fabio Gauthier Other [facility] Other Start: 06-22-2021 Office outpatient vi sit 15 minutes Fabio Gauthier [facility] [place] Start: 06-13-2021 End: 06-13-2021 ambulatory Fabio Gauthier Other [facility] Other Start: 04-04-2022 Telephone encounter Fabio Gauthier [facility] [place] Start: 05-31-2021 End: 05-31-2021 ambulatory Fabiojenae Gauthier Other [facility] Other Start: 05-31-2021 Telephone encounter [facility] Start: 03-09-2021 End: 03-09-2021 ambulatory Fabiojenae Gauthier Other [facility] Other Start: 03-09-2021 Nursing evaluation o f patient and report Fabiojenae [facility]auth[facility] Start: 03-09-2021 Telephone encounter [facility]ae [facility]auth[facility] Start: 03-08-2021 End: 03-08-2021 ambulatory Fabio Gauthier Other [facility] Other Start: 03-08-2021 Telephone encounter Fabio Gauthier [facility] Start: 02-25-2021 End: 02-25-2021 ambulatory Fabio Gauthier Other [facility] Other Start: 02-25-2021 Telephone encounter Fabio Gauthier [facility] Start: 12-20-2020 Nursing evaluation o f patient and report Fabio Gauthier [facility] Start: 12-20-2020 Telephone encounter Fabiojenae Gauthier [facility] Procedures Date Procedure Procedure Detail Performing Clinician Start: 01-04-2024 RSV (POC) DO Fabio royal Work Phone: Start: 11-09-2023 Screening mammograph y of bilateral breasts DO Fabio Gauthier Work Phone: Start: 11-07-2022 Screening mammograph y of bilateral breasts DO Fabio Gauthier Work Phone: Start: 10-19-2021 Bilateral mammography D O Fabio Gauthier Work Phone: Start: 10-19-2021 Ultrasonography of l eft breast DO Fabio Gauthier Work Phone: Start: 10-14-2021 Plain X-ray of bilat eral hands DO Fabio Abrahan Work Phone: SARS Antigen (LFIA) DO Fabio Minkarina Work Phone: Plan of Treatment Date Care Activity Detail Author Start: 11-05-2023 [facility] Start: 11-02-2023 Patient referral [facility] Work Phone: Start: 10-24-2021 End: 10-24-2021 Emergency department patient visit Departed Emergency [facility] Start: 10-19-2021 Bilateral mammography MM diagnostic mammo BI w/CAD [facility] Start: 10-19-2021 Ultrasonography of left breast US breast LT limited [facility] Start: 10-19-2021 End: 10-19-2021 Patient encounter procedure Departed Clinical [facility] Comprehensive metabo lic 2000 panel - Serum or Plasma [facility] Glucose measurement estimated from glycated hemoglobin [facility] Patient Education Sinusitis, Adult ED [facility] Work Phone: Patient referral [facility] Work Phone: US Abdomen limited [facility] Immunizations Immunization Date Immunization Notes Care Provider Fa cility 06-21-2018 influenza, seasonal, injectable Patient Objection Fabio Gauthier Other [employer] [facility] [employer] Other 03-20-2001 measles, mumps and rubella virus vaccine [facility] NEGATED: Highlighted row has not occurred!06-21-2018 influenza, seasonal, injectable Patient Objection Fabio Gauthier Other [employer] [facility] [employer] Other Payers Date Payer Category Payer Medicaid [id number] 2. [id number] 2023 Self-pay [id number] 2017 [facility] CHANDRAKANT [id number] Medicaid [id number] Unknown [id number] 2.1 [id number] Unknown [id number] 2.1 [id number] Unknown [id number] Unknown [id number] Social History Date Type Detail Facility Unknown if ever smoked [facility] Other Sex Assigned At Sex Assigned At Bir th [facility] Other Start: 10-24-2021 End: 11-02-2023 Tobacco smoking status NHIS Never smoked tobacco (finding) [facility] Start: 1975 Sex Assigned At Female F [facility] Clinical Notes 04-12-2014 to 11-02-2023 Note Date & Type Note Facility 11-02-2023 Evaluation note Authored November 02, 2023 11:26am The above note written by WILLY Ruiz acting as human recorder, note dictated by Dr. Fabio Gauthier. [facility] Work Phone: 1(384) 859-238202-09-2024 Evaluation note* Encounter Date Diagnosis Assessment Notes Treatment Notes Treatment Clinical Notes Apr, Acute cough (ICD-10 - R05.1) Apr, Headache (ICD-10 - R51.9) [facility] [employer] Other [id number] Evaluation note* Encounter Date Diagnosis Assessment Notes Treatment Notes Treatment Clinical Notes Sep, Hypertension (ICD-10 - I10) Pt is to continue with the above medication and we will continue to monitor. Sep, Microcytic anemia (ICD-10 - D50.9) Review of blood work reveals normal iron levels. Sep, Hyperlipemia (ICD-10 - E78.5) Review of blood work which revealed no signs of anemia, leukemia, or infection. Liver, kidney, and thyroid function is normal, as well as electrolytes. Her cholesterol has improved from last check and is looking good. Encouraged to watch diet and increase exercise regimen; we will continue to monitor. Sep, Hot flashes (ICD-10 - N95.1) Review of blood work reveals pt is postmenopausal and has very little estrogen in her system. She had a total hysterectomy in 2016. We did discuss pt starting estrogen replacement therapy, and discussed the risks and benefits of this. We will check her mammogram and if this is negative, we will start her on Premarin. Pt will research this medication before she returns for a follow up. Sep, Dizziness (ICD-10 - R42) Sep, Right ear pain (ICD-10 - H92.01) Sep, Screening for breast cancer (ICD-10 - Z12.39) The above screening imaging ordered today [facility] Other 06-01-2023 Evaluation note* Encounter Date Diagnosis Assessment Notes Treatment Notes Treatment Clinical Notes Aug, Headache (ICD-10 - R51.9) Patient reports frequent headaches and with blood pressure being in normal range, I suggest starting with updating blood work as she has not had any since 09/2020. Orders provided. Aug, Fatigue (ICD-10 - R53.83) Patient reports ongoing fatigue. She has known microcytic anemia and has not had her iron levels checked since 09/2020. Blood work ordered to evalaute. Aug, Dizziness (ICD-10 - R42) Blood pressure is WNL. Blood work ordered to evalaute further. Aug, Hypertension (ICD-10 - I10) Blood pressure upon check in is stable. Refill e-scribed. Aug, Sinus drainage (ICD-10 - J34.89) Aug, Family history of diabetes mellitus (ICD-10 - Z83.3) In house hgb a1c performed with a result of 5.4% which I advised is not indicative of diabetes. She does have a strong family history of diabetes with her brother being insulin dependent and ended up needing a leg amputation due to his diabetes. Aug, Hyperlipemia (ICD-10 - E78.5) Blood work ordered to update. Aug, Microcytic anemia (ICD-10 - D50.9) Blood work ordered to determine if her anemia is contributing to her fatigue. Aug, Hot flashes (ICD-10 - N95.1) Patient did have a total hysterectomy in 2016. She has hot flashes often. Blood work ordered to evaluate hormone levels. [facility] Other 01-17-2023 Evaluation note* Encounter Date Diagnosis Assessment Notes Treatment Notes Treatment Clinical Notes Mar, Sinusitis (ICD-10 - J32.9) [facility] Other 01-03-2023 Evaluation note* Encounter Date Diagnosis Assessment Notes Treatment Notes Treatment Clinical Notes Mar, Blood pressure elevated (ICD-10 - I10) [facility] Other 09-01-2022 Evaluation note* Encounter Date Diagnosis Assessment Notes Treatment Notes Treatment Clinical Notes Nov, Pain in right hand (ICD-10 - M79.641) Hand XR's are normal upon review. I suggested the patient take a half tablet at bedtime of the above medication as she does reports drowsiness the next day. I will provide samples of the pennsaid and if the hand pain continue we will refer the patient to Dr. Chaudhary for a second opinion. Nov, Pain in left hand (ICD-10 - M79.642) We will continue to monitor. Nov, Mastoiditis of right side (ICD-10 - H70.91) Patient reports improvement since finishing the augmentin. We will conitnue to monitor. Nov, Sinusitis (ICD-10 - J32.9) I will provide a refill of the zpak. We will continue to monitor. Nov, Breast pain, left (ICD-10 - N64.4) Mammogram was negative upon review. Nov, Blood pressure elevated (ICD-10 - I10) The patients blood pressure was WNL upon check in. Patient is to continue with the above medication. [facility] Other 04-13-2022 Evaluation note* Encounter Date Diagnosis Assessment Notes Treatment Notes Treatment Clinical Notes Jun, Dizziness (ICD-10 - R42) The patient does admit to feeling dizzy every morning which I advised was likely due to her mastoiditis. We will continue to monitor. Jun, Otitis media of right ear (ICD-10 - H66.91) Upon examination of the right ear, it does appear she has a middle ear infectio as well as mastoiditis. She does have pain behind her ear that has been ongoing for three to four weeks. I did prescribe the an oral antibiotic to take for four weeks. We will continue to monitor. Jun, Mastoiditis of right side (ICD-10 - H70.91) Above medication prescribed. [facility] Other 04-04-2022 Evaluation note* Encounter Date Diagnosis Assessment Notes Treatment Notes Treatment Clinical Notes Jun, Blood pressure elevated (ICD-10 - I10) [facility] Other 12-29-2021 Evaluation note* Encounter Date Diagnosis Assessment Notes Treatment Notes Treatment Clinical Notes Feb, Cough (ICD-10 - R05.9) Feb, Influenza A (ICD-10 - J10.1) In house covid and flu test was positive for influenza A. [facility] Other 10-11-2021 Evaluation note* Encounter Date Diagnosis Assessment Notes Treatment Notes Treatment Clinical Notes Dec, Headache (ICD-10 - R51.9) Pt was advised of positive results and provided with information regarding quarantine quidelines and CDC recommendations. She was advised to report to the ER with any significant shortness of breath or other severe symptoms. Dr. Mccarthy will be updated on her condition. See telephone encounter. [facility] Other 02-01-2015 History general Narrative - Reported* Type Description Date Medical History Anemia Medical History 04/2014 mammogram and US Medical History 02/23 enlarged fibro id uterus on US, stable with right functional ovarian cyst Medical History f/u with Dr Loo for [employer] ne eds Medical History 05/13/2015 Mammogram Medical History MRSA (methicillin re sistant staph aureus) culture positive Medical History COVID 19 + (12/20/2020) Surgical History Hysterectomy 06/2016 Hospitalization History 12/22/96 Hospitalization History 01/20/20 02 Hospitalization History 11/16/2007 [facility] Other [facility]No [facility] Other Evaluation noteNo assessment information available [facility] Work Phone: Evaluation note* Author Isabel Calderón [facility] Authored November 02, 2023 11 :26am The above note written by WILLY Ruiz acting as human recorder, note dictated by Dr. Fabio Gauthier. [facility] Work Phone: Hospital Discharge instructionsAmbulatory Orders* Referral to Vascular Surgery Time Frame: 11/02/23, Location: None Selected [facility] Work Phone: Chief Complaint and Reason for Visit Chief Complaint M79.641 M79.642 breast pain congestion Chief Complaint R53.83 E78.5 D50.9 N 95.1 R42 R51.9 Screening Chief Complaint vein in leg (painful ) Reason for Visit Phlebitis Screening for colon cancer Hyperglycemia Chief Complaint vein in leg (painful ) E78.5 R73.9 Reason for Visit Phlebitis Screening for colon cancer Chief Complaint vein in leg (painful ) E78.5 R73.9 Screening 2 month f/u Reason for Visit Phlebitis Screening for colon cancer Elevated liver enzymes HTN (hypertension) Hyperlipemia Phlebitis Sinusitis Family History Relationship Condition Age at Onset Recorded Date/[place] sister Myocardial infarction Unknown brother Renal failure Unknown Not Specified Aneurysm Unknown father History of blood clots Unknown Relationship Condition Age at Onset Recorded Date/T [place] Not Specified High blood cholesterol Unknown sister Myocardial infarction Unknown brother Renal failure Unknown mother Aneurysm Unknown Cerebral aneurysm Unknown Unknown father History of blood clots Unknown grandparent Family history of emphysema Unknown grandparent Unknown Malignant neoplasm of uterus Unknown Malignant neoplasm Unknown Advance Directives Advance Directive Response Recorded Date/ Time Advance Directives No July 25 8 6:33pm Summary Purpose Additional Source Comments REASON FOR VISIT (unrecogniz ed section and content) Clinicalcovid testcovid test no showClinical Acute IllnessClinical Acute MedicineRefillsNo Informationright ear pain ONLYclinicalClinical Acute Illnessclinical4 week follow upRefillsClinicalClinicalBP/ CHECK DIABETES6-7 week follow upcough, fatigueClinical Acute Illness Care Teams (unrecognized sec tion and content) Team Status: Active Member Role Status Dates Fabio Gauthier , DO Primary Care Provider Active Team Status: Inactive Member Role Status Dates Fabio Gauthier DO Primary Care Provider, Attending Provi janeen Active Team Status: Inactive Member Role Status Dates Fabio Gauthier DO Primary Care Provider Active [facility] Active Team Status: Inactive Member Role Status Dates Fabio Gauthier DO Primary Care Provide r, Attending Provider Active Start: November 02, 2023 End: November 02, 2023 Team Status: Inactive Member Role Status Dates Fabio Gauthier DO Primary Care Provide r, Attending Provider Active Start: November 05, 2023 End: November 05, 2023 Team Status: Inactive Member Role Status Dates Fabio Gauthier DO Primary Care Provide r, Referring Provider Active Start: November 09, 2023 End: November 09, 2023 Referral Self Attending Provider Active Start: A ug2023 End: November 09, 2023 Team Status: Inactive Member Role Status Dates Fabio Gauthier DO Primary Care Provide r, Attending Provider Active Start: January 04, 2024 End: January 04, 2024 Goals (unrecognized section and content) Goals may be documented in a n alternate section INFORMATION SOURCE (unrecogn ized section and content) DATE CREATED AUTHOR 11/14/2023 [facility] FOR RECORDS PERTAINING TO PATIENTS WHO ARE OR HAVE BEEN ENROLLED IN A CHEMICAL DEPENDENCY/SUBSTANCEABUSE PROGRAM, SOME INFORMATION MAY BE OMITTED. This clinical summary was aggregated from multiple sources. Caution should be exercised in using it in the provision of clinical care. This summary normalizes information from multiple sources, and as a consequence, information in this document may materially change the coding, format and clinical context of patient data. In addition, data may be omitted in some cases. CLINICAL DECISIONS SHOULD BE BASED ON THE PRIMARY CLINICAL RECORDS. [facility] [employer] [facility]. provides no warranty or guarantee of the accuracy or completeness of information in this document.
[2024-01-08 11:07] VITALS: BP 150/70; PULSE 80; O2SAT 98
== END 2024-01-08 11:06 | disposition home or self-care (01) ==
LOC: VC 10:16
PROVIDERS: PCP Radiology Diagnostic Radiology; Visit Provider Radiology Diagnostic Radiology
DX: I83.813 Varicose veins of bilateral lower extremities with pain (principal)
CPT/HCPCS: 36478

== ENCOUNTER 2024-01-15 10:21 | Outpatient (OUT) | payer BC, MEDICAID, SELFPAY ==
--- NOTE | 2024-01-15 10:24 | VEIN_ITS ---
Patient Name: ANA EMMANUEL MR#: [id number] : 1975 Exam Date: 01/15/2024 Ordering Doctor: DR MALDONADO BLEVINS M.D. RADIOLOGY REPORT PROCEDURE: VC EXT VENOUS LT LIMITED COMPARISON: None. INDICATIONS: I80.02 - Phlebitis and thrombophlebitis of superficial ve... TECHNIQUE: Lower extremity taylor scale and Duplex Doppler evaluation of the deep venous system from the inguinal ligament through the calf veins. FINDINGS: REGION: Left lower extremity. THROMBI: Negative for DVT. Heat induced thrombus visualized 1.4s from SFJ. The heat induced thrombus extends through prox AASV. COMPRESSIBILITY: Non-compressible segments corresponding to thrombus FLOW: Areas of no flow corresponding to thrombus CONCLUSION: Post ablation occlusion of the left anterior accessory saphenous vein with heat induced thrombus 1.4 cm from the saphenofemoral junction Dictated by: Tony Higuera MD on 01/15/2024 at 10:45 Approved by: Tony Higuera MD on 01/15/2024 at 10:56
--- NOTE | 2024-01-15 10:24 | VEIN_ITS ---
Patient Name: ANA EMMANUEL MR#: [id number] : 1975 Exam Date: 01/15/2024 Ordering Doctor: DR MALDONADO BLEVINS M.D. RADIOLOGY REPORT PROCEDURE: FACILITY EST LMTD VEIN CENTER - OFFICE VISIT FOLLOW UP COMPARISON: None. PROGRESS NOTES: The patient reports no significant problems following intravenous laser ablation of the left anterior accessory saphenous vein. The patient did not require oral analgesics. The patient has worn her compression stockings. Physical exam demonstrates mild bruising in the anterior left thigh likely related to tumescence injection. The incision is healed. Thrombosed left anterior accessory saphenous vein can be partially palpated. No erythema or warmth to suggest cellulitis or thrombophlebitis. No active ulceration Review of the ultrasound performed the same day demonstrates occlusive thrombus extending throughout the treated left anterior accessory saphenous vein with heat induced thrombus 1.4 cm from the saphenofemoral junction. No deep vein thrombus. The patient expressed a desire to proceed with treatment of incompetent left great saphenous vein. VEIN/ Facility EST LMTD IMPRESSION: 1. Successful ablation of the left anterior accessory saphenous vein 2. Persistent incompetent left great saphenous vein. PLAN: Intravenous laser ablation left great saphenous vein Nurse notes, history and physical were reviewed and confirmed, see attached forms. The nurse was present throughout the physical exam and consultation Dictated by: Tony Higuera MD on 01/15/2024 at 10:56 Approved by: Tony Higuera MD on 01/15/2024 at 11:02
--- OUTSIDE RECORDS SUMMARY | 2024-01-15 10:35 | XMS_ITS | CCD ---
Author Organization [facility] Care Team Providers Care Community Board Member Name Role Phone Fabio Gauthier Unavailable Abrahan, DO Mccarthy Primary Care Provider DO Fabio Gauthier Attending Provider [phone] [facility] F[facility] Emergency Provider DO Fabio Gauthier Primary Care Provider [phone] DO Fabio Gauthier Attending Provider DO Fabio Gauthier Primary Care Provider Abrahan, DO Mccarthy Attending Provider DO Fabio Gauthier Referring Provider Self, Referral Attending Provider Unavailable Fabio Gauthier Primary Care Unavailable Fabio Gauthier Attending Unavailable Fabio Gauthier Admitting Unavailable Self, Referral Admitting Unavailable Self, Referral Attending Unavailable Fabio Gauthier Primary Care Unavailable Fabio Gauthier Referring Unavailable Fabio Gauthier Admitting Unavailable Fabio Gauthier Primary Care Unavailable Fabio Gauthier Attending Unavailable Medications Current Medications Medication Drug Class(es) [...] Start: 05-31-2021 take 1 capsule by mo [facility] every twelve hours Cefdinir 300 MG 1 capsule Orally BID for 10 days May, Active cholecalciferol 0.05 mg oral tablet (4 sources) Vitamin D take 1 tablet by mouth every twenty-four hours Vitamin D 50 MCG (1999 UT) 1 tablet Orally Once a day [...] 27, 2019 1:00am take 1 tablet by [facility] every twenty-four hours Iron 325 (65 Fe) [...] minophen Discontinued 1 TAB PO Q6H 28 7 March 10, 2019 October 24, 2021 9:40am [...] Daily with breakfast August 03, 2018 12:00am October 24, 2021 9:40am hydrocortisone 10 mg/ml / neomycin 3.5 mg/ml / polymyxin b 48253 unt/ml otic suspension (8 sources) Aminoglycoside Antibacterial, Polymyxin-class Antibacterial, Corticosteroid Start: 11-26-2020 End: 10-24-2021 Deqliabk-Hshnzmhut-Vs Discontinued 4 DROPS EAR-BOTH Three times daily 12 19November 26, 2020 12:00am October 24, 2021 9:40am [...] serum enzymes] 01-04-2024 Episodic Other liver diseases (2 sources) Abnormal levels of other serum enzymes; Translations: [Other nonspecific abnormal serum enzyme levels] Onset: 4 01-04-2024 Episodic Other lower respiratory disease (1 [...] screening for malignant neoplasm of colon] Onset: 4 Episodic Other upper respiratory disease (10 sources) [...] Test Name Value Interpretation Reference Range Facility US abdomen limitedon 024 US abdomen limited [facility] Main [address] [address] Ultrasound Report Signed Patient: Jessy Barajas MR#: [id number] : 1975 Acct:[id number] Age/Sex: 49 / F ADM Date: 01/14/24 Loc: Room: Type: [facility] CLI Attending Dr: Fabio Gauthier DO Ordering Provider: Fabio Gauthier DO Date of Service: 01/14/24 US/US abdomen limited: R74.8 - Abnormal levels of other serum enzymes Copies to: Fabio Gauthier DO LIMITED ABDOMINAL ULTRASOUND: CLINICAL HISTORY: Elevated LFTs. COMPARISON: None TECHNIQUE: Grayscale and color Doppler images of the right upper quadrant organs were obtained. FINDINGS: Pancreas: Visualized portions appear unremarkable. Liver: Fatty infiltration. Gallbladder: Removed. CBD: 7.9 mm US/US abdomen limited IMPRESSION: FATTY INFILTRATION OF LIVER. NO ACUTE FINDINGS.. Impression dictated by: Gio Collins Jr., D.ODelfina01/14/2024 12:21 PM Dictation Location: [place] [address] Tech: [facility] Transcribed By: HENNY 01/14/24 1221 Dictated By: Gio Collins Jr, DO 01/14/24 1216 Signed By: 01/14/24 1221 Normal [facility] No Panel InformationOrdered By: Fabio Gauthier on 01-04-2024 RSV (POC) [facility] MM screening mammo BI w/CADo n 11-09-2023 MM screening mammo BI w/CAD [facility] Main [address] [address] Mammography Report Signed Patient: Jessy Barajas MR#: [id number] : 1975 Acct:[id number] Age/Sex: 48 / F ADM Date: 11/09/23 Loc: [place] Room: Type: [facility] CLI Attending Dr: Referral Self Copies to: Fabio Gauthier DO SELF,REFERRAL Ordering Provider: SELF,REFERRAL Date of Service: [...] mammogram. Impression dictated by: Gio Collins Jr., DDelfinaODelfina11/09/2023 10:40 AM Dictation Location: [facility] Transcribed By: [facility] 11/09/23 1040 Dictated By: Gio Collins Jr, DO 11/09/23 1040 Signed By: 11/09/23 1040 Normal [facility] A1C with Estimated Average G luon 11-05-2023 Glucose [Mass/Vol] 123 mg/dL Normal [facility] Comment on above: Result Comment: PERF ORMED BY: [place] [address] PATHOLOGIST FIRE PATROL ARIC SHEN M.D. Performed By: #### T 4F, TSH3, A1C WTH eA, LIPID, CMP, CBC #### [address] Alanine aminotransferase [En zymatic activity/volume] in Serum or PlasmaOrdered By: Fabio Gauthier on 11-05-2023 ALT [Catalytic activity/Vol] 73 U/L High 7-52 [facility] Comment on above: Performed By: #### T 4F, TSH3, A1C WTH eA, LIPID, CMP, CBC #### [facility] [address] Albumin [Mass/volume] in Ser um or Plasma by Bromocresol green (BCG) dye binding methoOrdered By: Fabio Gauthier on 11-05-2023 Albumin BCG dye [Mass/Vol] 5.2 g/dL 3.5-5.7 [facility] Alkaline phosphatase [Enzyma tic activity/volume] in Serum or PlasmaOrdered By: Fabio Gauthier on 11-05-2023 ALP [Catalytic activity/Vol] 114 U/L High 34-104 [facility] Comment on above: Performed By: #### T 4F, TSH3, A1C WTH eA, LIPID, CMP, CBC #### [address] Aspartate aminotransferase [ Enzymatic activity/volume] in Serum or PlasmaOrdered By: Fabio Gauthier on 11-05-2023 AST [Catalytic activity/Vol] 33 U/L Normal 13-39 [facility] Comment on above: Performed By: #### T 4F, TSH3, A1C WTH eA, LIPID, CMP, CBC #### [address] Automated basophil %Ordered By: Fabio Gauthier on 11-05-2023 Basophils/100 WBC (Bld) 0.6 % Normal . [facility] Comment on above: Performed By: #### T 4F, TSH3, A1C WTH eA, LIPID, CMP, CBC #### [address] Automated basophil countOrde red By: Fabio Gauthier on 11-05-2023 Basophils (Bld) [#/Vol] 0.1 10*3/uL Normal 0.0-0.2 [facility] Comment on above: Result Comment: PERF ORMED BY: [place] [address] PATHOLOGIST FIRE PATROL ARIC SHEN M.D. Performed By: #### T 4F, TSH3, A1C WTH eA, LIPID, CMP, CBC #### [facility] [address] Automated blood monocyte cou ntOrdered By: Fabio Gauthier on 11-05-2023 Monocytes (Bld) [#/Vol] 0.5 10*3/uL Normal 0.0-0.8 [facility] Comment on above: Performed By: #### T 4F, TSH3, A1C WTH eA, LIPID, CMP, CBC #### [facility] [address] Automated eosinophil %Ordere d By: Fabio Gauthier on 11-05-2023 Eosinophils/100 WBC (Bld) 0.6 % Normal . [facility] Comment on above: Performed By: #### T 4F, TSH3, A1C WTH eA, LIPID, CMP, CBC #### [address] Automated eosinophil countOr dered By: Fabio Gauthier on 11-05-2023 Eosinophils (Bld) [#/Vol] 0.1 10*3/uL Normal 0.0-0.45 [facility] Comment on above: Performed By: #### T 4F, TSH3, A1C WTH eA, LIPID, CMP, CBC #### [facility] [address] [place] [address] Automated monocyte %Ordered By: Fabio Gauthier on 11-05-2023 Monocytes/100 WBC (Bld) 4.4 % Normal . [facility] Comment on above: Performed By: #### T 4F, TSH3, A1C WTH eA, LIPID, CMP, CBC #### [facility] [address] Automated neutrophil %Ordere d By: Fabio Gauthier on 11-05-2023 Neutrophils/100 WBC (Bld) 75.9 % Normal . [facility] Comment on above: Performed By: #### T 4F, TSH3, A1C WTH eA, LIPID, CMP, CBC #### [facility] [address] [place] [address] Bilirubin.total [Mass/volume ] in Serum or PlasmaOrdered By: Fabio Gauthier on 11-05-2023 Bilirubin [Mass/Vol] 0.7 mg/dL Normal 0.3-1.0 [facility] Comment on above: Performed By: #### T 4F, TSH3, A1C WTH eA, LIPID, CMP, CBC #### [facility] [address] [place] [address] [place] Calcium [Mass/volume] in Ser um or PlasmaOrdered By: Fabio Gauthier on 11-05-2023 Calcium [Mass/Vol] 10.3 mg/dL Normal 8.6-10.3 [facility] Comment on above: Performed By: #### T 4F, TSH3, A1C WTH eA, LIPID, CMP, CBC #### [facility] [address] [place] [address] [place] Carbon dioxide, total [Moles /volume] in Serum or PlasmaOrdered By: Fabio Gauthier on 11-05-2023 CO2 [Moles/Vol] 25.6 mmol/L Normal 21.0-31.0 [facility] Comment on above: Performed By: #### T 4F, TSH3, A1C WTH eA, LIPID, CMP, CBC #### [facility] [address] [place] [address] [place] Chloride [Moles/volume] in S lupis or PlasmaOrdered By: Fabio Gauthier on 11-05-2023 Chloride [Moles/Vol] 107 mmol/L Normal 98-107 [facility] Comment on above: Performed By: #### T 4F, TSH3, A1C WTH eA, LIPID, CMP, CBC #### [facility] [address] [place] [address] [place] Cholesterol [Mass/volume] in Serum or PlasmaOrdered By: Fabio Gauthier on 11-05-2023 Cholesterol [Mass/Vol] 193 mg/dL Normal 140-200 [facility] Comment on above: Chol less than 200 m g/dl low riskChol 201-239 mg/dl borderline riskChol 240 mg/dl and greater high risk Result Comment: Chol less than 200 mg/dl low risk Chol 201-239 mg/dl borderline risk Chol 240 mg/dl and greater high risk Performed By: #### T 4F, TSH3, A1C WTH eA, LIPID, CMP, CBC #### [facility] [address] Cholesterol in LDL Calc [Mas s/Vol]Ordered By: Fabio Gauthier on 11-05-2023 Cholesterol in LDL [Mass/Vol] 114 mg/dL High 0-100 [facility] Comment on above: LDL ATP III CLASSIFI CATIONLDL less than 100 mg/dL OptimalLDL 100-129 mg/dL Near or above optimalLDL 130-159 mg/dL Borderline highLDL 160-189 mg/dL HighLDL greater than 189 mg/dL Very high Cholesterol in VLDL Calc [Ma ss/Vol]Ordered By: Fabio Gauthier on 11-05-2023 Cholesterol in VLDL [Mass/Vol] 17 mg/dL [facility] Complete Blood Count Auto Di ffon 11-05-2023 Mean Corpuscular HGB Conc 33.6 g/dL Normal 32.0-35.0 [facility] Comment on above: Performed By: #### T 4F, TSH3, A1C WTH eA, LIPID, CMP, CBC #### [facility] [address] NRBC% 0.3 /100{WBC} Normal 0-0.5 [facility] Comment on above: Performed By: #### T 4F, TSH3, A1C WTH eA, LIPID, CMP, CBC #### [facility] [address] Comprehensive Metabolic Pane sherry 11-05-2023 Albumin [Mass/Vol] 5.2 g/dL Normal 3.5-5.7 [facility] Comment on above: Performed By: #### T 4F, TSH3, A1C WTH eA, LIPID, CMP, CBC #### [facility] [address] [place] [address] [place] GFR/1.73 sq M.predicted MDRD (S/P/Bld) [Vol rate/Area] mL/min/{1.73_m2} Normal [facility] Comment on above: Performed By: #### T 4F, TSH3, A1C WTH eA, LIPID, CMP, CBC #### [facility] [address] Creatinine [Mass/volume] in Serum or PlasmaOrdered By: Fabio Gauthier on 11-05-2023 Creatinine [Mass/Vol] 0.59 mg/dL Low 0.60-1.20 [facility] Comment on above: Performed By: #### T 4F, TSH3, A1C WTH eA, LIPID, CMP, CBC #### [facility] [address] Erythrocyte distribution wid th [Ratio] by Automated countOrdered By: Fabio Gauthier on 11-05-2023 Erythrocyte distribution width (RBC) [Ratio] 12.2 % Normal 11.9-15.3 [facility] Comment on above: Performed By: #### T 4F, TSH3, A1C WTH eA, LIPID, CMP, CBC #### [facility] [address] Erythrocytes [#/volume] in B lood by Automated countOrdered By: Fabio Gauthier on 11-05-2023 RBC (Bld) [#/Vol] 5.40 10*6/uL High 3.60-5.00 [facility] Comment on above: Performed By: #### T 4F, TSH3, A1C WTH eA, LIPID, CMP, CBC #### [facility] [address] Glucose [Mass/volume] in Ser um or PlasmaOrdered By: Fabio Gauthier on 11-05-2023 Glucose [Mass/Vol] 113 mg/dL High 70-100 [facility] Comment on above: ADA recommended refe rence rangeRandom Glucose Reference Range is dependent on time and content of last meal. Glucose of more than 200 mg/dL in a nonstressed, ambulatory subject supports the diagnosis of Diabetes Mellitus. Result Comment: [place] om Glucose Reference Range is dependent on time and content of last meal. Glucose of more than 200 mg/dL in a nonstressed, ambulatory subject supports the diagnosis of Diabetes Mellitus. ADA recommended reference range Performed By: #### T 4F, TSH3, A1C WTH eA, LIPID, CMP, CBC #### [facility] [address] Glucose mean value [Mass/vol ume] in Blood Estimated from glycated hemoglobinOrdered By: Fabio Gauthier on 11-05-2023 Average glucose Estimated from glycated hemoglobin (Bld) [Mass/Vol] 123 mg/dL [facility] Hematocrit [Volume Fraction] of Blood by Automated countOrdered By: Fabio Gauthier on 11-05-2023 Hematocrit (Bld) [Volume fraction] 44.8 % Normal 34.0-46.4 [facility] Comment on above: Performed By: #### T 4F, TSH3, A1C WTH eA, LIPID, CMP, CBC #### [facility] [address] Hemoglobin A1c percentageOrd ered By: Fabio Gauthier on 11-05-2023 HbA1c (Bld) [Mass fraction] 5.9 % High 4.3-5.6 [facility] Comment on above: Increased risk for d iabetes: 5.7 - 6.4diabetes: >6.4glycemic control for adults with diabetes: <7.0 Result Comment: Incr eased risk for diabetes: 5.7 - 6.4 diabetes: >6.4 glycemic control for adults with diabetes: <7.0 Performed By: #### T 4F, TSH3, A1C WTH eA, LIPID, CMP, CBC #### [facility] [address] [place] [id number] [place] Hemoglobin [Mass/volume] in BloodOrdered By: Fabio Gauthier on 11-05-2023 Hemoglobin (Bld) [Mass/Vol] 15.1 g/dL Normal 11.8-15.4 [facility] Comment on above: Performed By: #### T 4F, TSH3, A1C WTH eA, LIPID, CMP, CBC #### [facility] [address] [place] [id number] [place] Leukocytes [#/volume] correc mecca for nucleated erythrocytes in Blood by Automated counOrdered By: Fabio Gauthier on 11-05-2023 WBC corrected for nucl RBC Auto (Bld) [#/Vol] 11.3 10*3/uL 3.8-11.6 [facility] Leukocytes [#/volume] in Blo od by Automated countOrdered By: Fabio Gauthier on 11-05-2023 WBC (Bld) [#/Vol] 11.3 10*3/uL Normal 3.8-11.6 [facility] Comment on above: Performed By: #### T 4F, TSH3, A1C WTH eA, LIPID, CMP, CBC #### [facility] [address] Lipid Panelon 11-05-2023 LDL Cholesterol,Calculated 114 mg/dL High 0-100 [facility] Comment on above: Result Comment: LDL ATP III CLASSIFICATION LDL less than 100 mg/dL Optimal LDL 100-129 mg/dL Near or above optimal LDL 130-159 mg/dL Borderline high LDL 160-189 mg/dL High LDL greater than 189 mg/dL Very high Performed By: #### T 4F, TSH3, A1C WTH eA, LIPID, CMP, CBC #### [facility] [address] Triglyceride w/Reflex 88 mg/dL Normal 0-149 [facility] Comment on above: Result Comment: TRIG ATP III CLASSIFICATION TRIG less than 150 mg/dL Normal TRIG 150-199 mg/dL Borderline high TRIG 200-500 mg/dL High TRIG greater than 500 mg/dL Very high Standard traceable to the Center for Disease Conrtrol and Prevention (CDC) test method. Performed By: #### T 4F, TSH3, A1C WTH eA, LIPID, CMP, CBC #### [facility] [address] VLDL CHOLESTEROL 17 mg/dL Normal [facility] Comment on above: Performed By: #### T 4F, TSH3, A1C WTH eA, LIPID, CMP, CBC #### [facility] [address] Lymphocytes [#/volume] in Bl ood by Automated countOrdered By: Fabio Gauthier on 11-05-2023 Lymphocytes (Bld) [#/Vol] 2.1 10*3/uL Normal 1.00-4.8 [facility] Comment on above: Performed By: #### T 4F, TSH3, A1C WTH eA, LIPID, CMP, CBC #### [facility] [address] [place] [address] Lymphocytes/100 leukocytes i n Blood by Automated countOrdered By: Fabio Gauthier on 11-05-2023 Lymphocytes/100 WBC (Bld) 18.5 % Normal . [facility] Comment on above: Performed By: #### T 4F, TSH3, A1C WTH eA, LIPID, CMP, CBC #### [address] MCH [Entitic mass] by [place] countOrdered By: Fabio Gauthier on 11-05-2023 MCH (RBC) [Entitic mass] 27.9 pg Normal 24.7-34.3 [facility] Comment on above: Performed By: #### T 4F, TSH3, A1C WTH eA, LIPID, CMP, CBC #### [address] MCHC Auto (RBC) [Mass/Vol]Or dered By: Fabio Gauthier on 11-05-2023 MCHC (RBC) [Mass/Vol] 33.6 g/dL 32.0-35.0 [facility] MCV [Entitic volume] by Auto mated countOrdered By: Fabio Gauthier on 11-05-2023 MCV (RBC) [Entitic vol] 82.8 fL Normal 80-100 [facility] Comment on above: Performed By: #### T 4F, TSH3, A1C WTH eA, LIPID, CMP, CBC #### [address] Neutrophils [#/volume] in Bl ood by Automated countOrdered By: Fabio Gauthier on 11-05-2023 Neutrophils (Bld) [#/Vol] 8.6 10*3/uL High 1.8-7.7 [facility] Comment on above: Performed By: #### T 4F, TSH3, A1C WTH eA, LIPID, CMP, CBC #### [address] No Panel InformationOrdered By: Fabio Gauthier on 11-05-2023 Estimated GFR (CKD-EPI) > 60.0 mL/Min [facility] Creatinine Clearance (Chem N/A [facility] Nucleated erythrocytes [Pres ence] in Blood by Automated countOrdered By: Fabio Gauthier on 11-05-2023 Nucleated RBC Auto Ql (Bld) 0.3 /100{WBC} 0-0.5 [facility] Platelet mean volume [Entiti c volume] in Blood by Automated countOrdered By: Fabio Gauthier on 11-05-2023 Platelet mean volume (Bld) [Entitic vol] 9.0 fL Normal 6.3-10.7 [facility] Comment on above: Performed By: #### T 4F, TSH3, A1C WTH eA, LIPID, CMP, CBC #### [facility] [address] [place] [address] [place] Platelets [#/volume] in Bloo d by Automated countOrdered By: Fabio Gauthier on 11-05-2023 Platelets (Bld) [#/Vol] 289 10*3/uL Normal 150-450 [facility] Comment on above: Performed By: #### T 4F, TSH3, A1C WTH eA, LIPID, CMP, CBC #### [facility] [address] [place] [address] [place] Potassium [Moles/volume] in Serum or PlasmaOrdered By: Fabio Gauthier on 11-05-2023 Potassium [Moles/Vol] 4.3 mmol/L Normal 3.5-5.1 [facility] Comment on above: Performed By: #### T 4F, TSH3, A1C WTH eA, LIPID, CMP, CBC #### [facility] [address] [place] [address] [place] Protein [Mass/volume] in Ser um or PlasmaOrdered By: Fabio Gauthier on 11-05-2023 Protein [Mass/Vol] 7.9 g/dL Normal 6.4-8.9 [facility] Comment on above: Performed By: #### T 4F, TSH3, A1C WTH eA, LIPID, CMP, CBC #### [facility] [address] Serum globulin measurement b y calculation (mass/volume)Ordered By: Fabio Gauthier on 11-05-2023 Globulin (S) [Mass/Vol] 2.7 g/dL Normal [facility] Comment on above: Performed By: #### T 4F, TSH3, A1C WTH eA, LIPID, CMP, CBC #### [facility] [address] Serum or plasma albumin/glob ulin mass ratioOrdered By: Fabio Gauthier on 11-05-2023 Albumin/Globulin [Mass ratio] 1.9 {ratio} Normal [facility] Comment on above: Performed By: #### T 4F, TSH3, A1C WTH eA, LIPID, CMP, CBC #### [facility] [address] Serum or plasma anion gap de terminationOrdered By: Fabio Gauthier on 11-05-2023 Anion gap [Moles/Vol] 13.7 mmol/L Normal 6.0-15.0 [facility] Comment on above: Performed By: #### T 4F, TSH3, A1C WTH eA, LIPID, CMP, CBC #### [facility] [address] Serum or plasma high density lipoprotein (HDL) cholesterol measurementOrdered By: Fabio Gauthier on 11-05-2023 Cholesterol in HDL [Mass/Vol] 61 mg/dL Normal 23-92 [facility] Comment on above: HDL CHOL ATP-III CLA SSIFICATION Cardiovascular RiskHDL > or equal to 60 mg/dL LOWHDL < 40 mg/dL HIGH Result Comment: HDL CHOL ATP-III CLASSIFICATION Cardiovascular Risk HDL > or equal to 60 mg/dL LOW HDL < 40 mg/dL HIGH Performed By: #### T 4F, TSH3, A1C WTH eA, LIPID, CMP, CBC #### [facility] [address] Serum or plasma total choles terol/high density lipoprotein (HDL) cholesterol mass ratOrdered By: Fabio Gauthier on 11-05-2023 Cholesterol.total/Poornima sterol in HDL [Mass ratio] 3.2 {ratio} Normal <5.0 [facility] Comment on above: Performed By: #### T 4F, TSH3, A1C WTH eA, LIPID, CMP, CBC #### [facility] [address] Sodium [Moles/volume] in Ser um or PlasmaOrdered By: Fabio Gauthier on 11-05-2023 Sodium [Moles/Vol] 142 mmol/L Normal 136-145 [facility] Comment on above: Performed By: #### T 4F, TSH3, A1C WTH eA, LIPID, CMP, CBC #### [facility] [address] Thyrotropin [Units/volume] i n Serum or PlasmaOrdered By: Fabio Gauthier on 11-05-2023 TSH Qn 2.55 m[IU]/L Normal 0.45-5.33 [facility] Comment on above: Result Comment: PERF ORMED BY: [place] [address] PATHOLOGIST FIRE PATROL ARIC SHEN M.D. Performed By: #### T 4F, TSH3, A1C WTH eA, LIPID, CMP, CBC #### [address] Thyroxine (T4) free [Mass/vo lume] in Serum or PlasmaOrdered By: Fabio Gauthier on 11-05-2023 Free T4 [Mass/Vol] 0.77 ng/dL Normal 0.61-1.12 [facility] Comment on above: Performed By: #### T 4F, TSH3, A1C WTH eA, LIPID, CMP, CBC #### [facility] [address] Triglyceride [Mass/volume] i n Serum or PlasmaOrdered By: Fabio Gauthier on 11-05-2023 Triglyceride [Mass/Vol] 88 mg/dL 0-149 [facility] Comment on above: TRIG ATP III CLASSIF ICATIONTRIG less than 150 mg/dL NormalTRIG 150-199 mg/dL Borderline highTRIG 200-500 mg/dL High TRIG greater than 500 mg/dL Very highStandard traceable to the Center for Disease Conrtrol and Prevention (CDC) test method. Urea nitrogen [Mass/volume] in Serum or PlasmaOrdered By: Fabio Gauthier on 11-05-2023 Urea nitrogen [Mass/Vol] 12 mg/dL Normal 7-25 [facility] Comment on above: Performed By: #### T 4F, TSH3, A1C WTH eA, LIPID, CMP, CBC #### [facility] [address] [place] [id number] [facility] COVID + FLU Quick Testingon 04-20-2023 SARS-CoV-2 (COVID-19) RNA SUSHMA+probe Ql (Unsp spec) Positive [employer] Other COVID + FLU Quick Testing Negative [employer] Other Quick Strepon 04-20-2023 S. pyogenes Org specific cx Ql (Throat) Negative [facility] [employer] Other Quick Strep [employer] Other RSVon 04-20-2023 RSV Ag IA Ql (Unsp spec) Negative [employer] Other Alanine aminotransferase [En zymatic activity/volume] in Serum or PlasmaOrdered By: Fabio Gauthier on 08-14-2022 ALT [Catalytic activity/Vol] 44 U/L 7-52 [facility] Albumin [Mass/volume] in Ser um or Plasma by Bromocresol green (BCG) dye binding methoOrdered By: Fabio Gauthier on 08-14-2022 Albumin BCG dye [Mass/Vol] 4.8 g/dL 3.5-5.7 [facility] Alkaline phosphatase [Enzyma tic activity/volume] in Serum or PlasmaOrdered By: Fabio Gauthier on 08-14-2022 ALP [Catalytic activity/Vol] 112 U/L 34-104 [facility] Aspartate aminotransferase [ Enzymatic activity/volume] in Serum or PlasmaOrdered By: Fabio Gauthier on 08-14-2022 AST [Catalytic activity/Vol] 26 U/L 13-39 [facility] Basophils Auto (Bld) [#/Vol] Ordered By: Fabio Gauthier on 08-14-2022 Basophils (Bld) [#/Vol] 0.1 10*3/uL 0.0-0.2 [facility] Basophils/100 WBC Auto (Bld) Ordered By: Fabio Gauthier on 08-14-2022 Basophils/100 WBC (Bld) 0.9 % . [facility] Bilirubin.total [Mass/volume ] in Serum or PlasmaOrdered By: Fabio Gauthier on 08-14-2022 Bilirubin [Mass/Vol] 0.9 mg/dL 0.3-1.0 [facility] Calcium [Mass/volume] in Ser um or PlasmaOrdered By: Fabio Gauthier on 08-14-2022 Calcium [Mass/Vol] 9.5 mg/dL 8.6-10.3 [facility] Carbon dioxide, total [Moles /volume] in Serum or PlasmaOrdered By: Fabio Gauthier on 08-14-2022 CO2 [Moles/Vol] 26.6 mmol/L 21.0-31.0 [facility] Chloride [Moles/volume] in S lupis or PlasmaOrdered By: Fabio Gauthier on 08-14-2022 Chloride [Moles/Vol] 106 mmol/L 98-107 [facility] Cholesterol [Mass/volume] in Serum or PlasmaOrdered By: Fabio Gauthier on 08-14-2022 Cholesterol [Mass/Vol] 192 mg/dL 140-200 [facility] Comment on above: Chol less than 200 m g/dl low riskChol 201-239 mg/dl borderline riskChol 240 mg/dl and greater high risk Cholesterol in LDL Calc [Mas s/Vol]Ordered By: Fabio Gauthier on 08-14-2022 Cholesterol in LDL [Mass/Vol] 100 mg/dL 0-100 [facility] Comment on above: LDL ATP III CLASSIFI CATIONLDL less than 100 mg/dL OptimalLDL 100-129 mg/dL Near or above optimalLDL 130-159 mg/dL Borderline highLDL 160-189 mg/dL HighLDL greater than 189 mg/dL Very high Cholesterol in VLDL Calc [Ma ss/Vol]Ordered By: Fabio Gauthier on 08-14-2022 Cholesterol in VLDL [Mass/Vol] 33 mg/dL [facility] Creatinine [Mass/volume] in Serum or PlasmaOrdered By: Fabio Gauthier on 08-14-2022 Creatinine [Mass/Vol] 0.47 mg/dL 0.60-1.20 [facility] Eosinophils Auto (Bld) [#/Vo l]Ordered By: Fabio Gauthier on 08-14-2022 Eosinophils (Bld) [#/Vol] 0.4 10*3/uL 0.0-0.45 [facility] Eosinophils/100 WBC Auto (Bl d)Ordered By: Fabio Gauthier on 08-14-2022 Eosinophils/100 WBC (Bld) 5.3 % . [facility] Erythrocyte distribution wid th Auto (RBC) [Ratio]Ordered By: Fabio Gauthier on 08-14-2022 Erythrocyte distribution width (RBC) [Ratio] 12.7 % 11.9-15.3 [facility] Ferritin [Mass/volume] in Se rum or PlasmaOrdered By: Fabio Gauthier on 08-14-2022 Ferritin [Mass/Vol] 138.6 ng/mL 11.0-306.8 [facility] Follitropin [Units/volume] i n Serum or PlasmaOrdered By: Fabio Gauthier on 08-14-2022 Follitropin Qn 28.0 m[IU]/mL [facility] Comment on above: FEMALE NORMALS (RUBIA ENOPAUSE) MID-FOLLICULAR PHASE: 3.9-8.8 mIU/mL MID-CYCLE PEAK: 4.5-22.5 mIU/mL MID-LUTEAL PHASE: 1.8-5.1 mIU/mLFEMALE NORMALS (POSTMENOPAUSE): 16.7-113.6 mIU/mLMALE NORMALS: 1.3-19.3 mIU/mL Globulin Calc (S) [Mass/Vol] Ordered By: Fabio Gauthier on 08-14-2022 Globulin (S) [Mass/Vol] 2.8 g/dL [facility] Glucose [Mass/volume] in Ser um or PlasmaOrdered By: Fabio Gauthier on 08-14-2022 Glucose [Mass/Vol] 104 mg/dL 70-100 [facility] Comment on above: ADA recommended refe rence rangeRandom Glucose Reference Range is dependent on time and content of last meal. Glucose of more than 200 mg/dL in a nonstressed, ambulatory subject supports the diagnosis of Diabetes Mellitus. Hematocrit Auto (Bld) [Volum e fraction]Ordered By: Fabio Gauthier on 08-14-2022 Hematocrit (Bld) [Volume fraction] 43.9 % 34.0-46.4 [facility] Hemoglobin [Mass/volume] in BloodOrdered By: Fabio Gauthier on 08-14-2022 Hemoglobin (Bld) [Mass/Vol] 14.9 g/dL 11.8-15.4 [facility] Iron [Mass/volume] in Serum or PlasmaOrdered By: Fabio Gauthier on 08-14-2022 Iron [Mass/Vol] 160 ug/dL 50-212 [facility] Iron binding capacity [Mass/ volume] in Serum or PlasmaOrdered By: Fabio Gauthier on 08-14-2022 Iron binding capacity [Mass/Vol] 402 ug/dL 255-450 [facility] Iron saturation [Mass Fracti on] in Serum or PlasmaOrdered By: Fabio Gauthier on 08-14-2022 Iron saturation [Mass fraction] 39.8 % 20-50 [facility] Leukocytes [#/volume] correc mecca for nucleated erythrocytes in Blood by Automated counOrdered By: Fabio Gauthier on 08-14-2022 WBC corrected for nucl RBC Auto (Bld) [#/Vol] 7.2 10*3/uL 3.8-11.6 [facility] Lymphocytes Auto (Bld) [#/Vo l]Ordered By: Fabio Gauthier on 08-14-2022 Lymphocytes (Bld) [#/Vol] 2.2 10*3/uL 1.00-4.8 [facility] Lymphocytes/100 WBC Auto (Bl d)Ordered By: Fabio Gauthier on 08-14-2022 Lymphocytes/100 WBC (Bld) 30.6 % . [facility] MCH Auto (RBC) [Entitic mass ]Ordered By: Fabio Gauthier on 08-14-2022 MCH (RBC) [Entitic mass] 27.7 pg 24.7-34.3 [facility] MCHC Auto (RBC) [Mass/Vol]Or dered By: Fabio Gauthier on 08-14-2022 MCHC (RBC) [Mass/Vol] 34.0 g/dL 32.0-35.0 [facility] MCV Auto (RBC) [Entitic vol] Ordered By: Fabio Gauthier on 08-14-2022 MCV (RBC) [Entitic vol] 81.7 fL 80-100 [facility] Monocytes Auto (Bld) [#/Vol] Ordered By: Fabio Gauthier on 08-14-2022 Monocytes (Bld) [#/Vol] 0.5 10*3/uL 0.0-0.8 [facility] Monocytes/100 WBC Auto (Bld) Ordered By: Fabio Gauthier on 08-14-2022 Monocytes/100 WBC (Bld) 6.6 % . [facility] Neutrophils Auto (Bld) [#/Vo l]Ordered By: Fabio Gauthier on 08-14-2022 Neutrophils (Bld) [#/Vol] 4.1 10*3/uL 1.8-7.7 [facility] Neutrophils/100 WBC Auto (Bl d)Ordered By: Fabio Gauthier on 08-14-2022 Neutrophils/100 WBC (Bld) 56.6 % . [facility] No Panel InformationOrdered By: Fabio Gauthier on 08-14-2022 Estimated GFR (CKD-EPI) > 60.0 mL/Min [facility] Creatinine Clearance (Chem N/A [facility] Nucleated erythrocytes [Pres ence] in Blood by Automated countOrdered By: Fabio Gauthier on 08-14-2022 Nucleated RBC Auto Ql (Bld) 0.1 /100{WBC} 0-0.5 [facility] Platelet mean volume Auto (B ld) [Entitic vol]Ordered By: Fabio Gauthier on 08-14-2022 Platelet mean volume (Bld) [Entitic vol] 9.0 fL 6.3-10.7 [facility] Platelets Auto (Bld) [#/Vol] Ordered By: Fabio Gauthier on 08-14-2022 Platelets (Bld) [#/Vol] 245 10*3/uL 150-450 [facility] Potassium [Moles/volume] in Serum or PlasmaOrdered By: Fabio Gauthier on 08-14-2022 Potassium [Moles/Vol] 3.8 mmol/L 3.5-5.1 [facility] Protein [Mass/volume] in Ser um or PlasmaOrdered By: Fabio Gauthier on 08-14-2022 Protein [Mass/Vol] 7.6 g/dL 6.4-8.9 [facility] RBC Auto (Bld) [#/Vol]Ordere d By: Fabio Gauthier on 08-14-2022 RBC (Bld) [#/Vol] 5.38 10*6/uL 3.60-5.00 [facility] Serum or plasma albumin/glob ulin mass ratioOrdered By: Fabio Gauthier on 08-14-2022 Albumin/Globulin [Mass ratio] 1.7 {ratio} [facility] Serum or plasma anion gap de terminationOrdered By: Fabio Gauthier on 08-14-2022 Anion gap [Moles/Vol] 12.2 mmol/L 6.0-15.0 [facility] Serum or plasma estradiol (E 2) measurement (mass/volume)Ordered By: Fabio Gauthier on 08-14-2022 E2 [Mass/Vol] pg/mL . [facility] Comment on above: Adult Female: Follic ular phase 12.5 - 166.0 Ovulation phase 85.8 - 498.0 Luteal phase 43.8 - 211.0 Postmenopausal <6.0 - 54.7 1st trimester 215.0 - >4300.0Roche ECLIA methodologyPerformed at: CB [facility] [place] [id number] Director: Galo Nance PhD, Phone: [phone] Serum or plasma high density lipoprotein (HDL) cholesterol measurementOrdered By: Fabio Gauthier on 08-14-2022 Cholesterol in HDL [Mass/Vol] 59 mg/dL 23-92 [facility] Comment on above: HDL CHOL ATP-III CLA SSIFICATION Cardiovascular RiskHDL > or equal to 60 mg/dL LOWHDL < 40 mg/dL HIGH Serum or plasma total choles terol/high density lipoprotein (HDL) cholesterol mass ratOrdered By: Fabio Gauthier on 08-14-2022 Cholesterol.total/Poornima sterol in HDL [Mass ratio] 3.3 {ratio} <5.0 [facility] Sodium [Moles/volume] in Ser um or PlasmaOrdered By: Fabio Gauthier on 08-14-2022 Sodium [Moles/Vol] 141 mmol/L 136-145 [facility] Thyrotropin [Units/volume] i n Serum or PlasmaOrdered By: Fabio Gauthier on 08-14-2022 TSH Qn 2.35 m[IU]/L 0.45-5.33 [facility] Thyroxine (T4) free [Mass/vo lume] in Serum or PlasmaOrdered By: Fabio Gauthier on 08-14-2022 Free T4 [Mass/Vol] 0.73 ng/dL 0.61-1.12 [facility] Transferrin [Mass/volume] in Serum or PlasmaOrdered By: Fabio Gauthier on 08-14-2022 Transferrin [Mass/Vol] 287 mg/dL 203-362 [facility] Triglyceride [Mass/volume] i n Serum or PlasmaOrdered By: Fabio Gauthier on 08-14-2022 Triglyceride [Mass/Vol] 167 mg/dL 0-149 [facility] Comment on above: TRIG ATP III CLASSIF ICATIONTRIG less than 150 mg/dL NormalTRIG 150-199 mg/dL Borderline highTRIG 200-500 mg/dL High TRIG greater than 500 mg/dL Very highStandard traceable to the Center for Disease Conrtrol and Prevention (CDC) test method. Urea nitrogen [Mass/volume] in Serum or PlasmaOrdered By: Fabio Gauthier on 08-14-2022 Urea nitrogen [Mass/Vol] 14 mg/dL 7-25 [facility] Vitamin D+Metabolites [Mass/ volume] in Serum or PlasmaOrdered By: Fabio Gauthier on 08-14-2022 Vitamin D+Metabolites [Mass/Vol] 78.9 ng/mL 30-100 [facility] Comment on above: VITAMIN D STATUS 25( OH)VITAMIN D RANGE (ng/mL) Deficient <20 Insufficient 20 to <30Sufficient 30 to 100Reference: Mannie WALTON,Stephen GIRARD, Luis F MELCHOR, et al. Evaluation,treatment, and prevention of vitamin D deficiency; an Endocrine Society clinical practice guideline. JCEM. 2010; 96(7):1911-30. WBC Auto (Bld) [#/Vol]Ordere d By: Fabiojenae Copelandkarina on 08-14-2022 WBC (Bld) [#/Vol] 7.2 10*3/uL 3.8-11.6 [facility] A1C HEMOGLOBINon 08-10-2022 HbA1c (Bld) [Mass fraction] 5.4 % [facility] Other HbA1c (Bld) [Mass fraction]o n 08-10-2022 A1C HEMOGLOBIN [facility] Other COVID-19 SOFIAOrdered By: Yolette Joseph on 10-24-2021 SARS-CoV+SARS-CoV-2 (COVID-19) Ag IA.rapid Ql (Resp) Negative Negative [facility] Comment on above: This is a duplicate Swathi SARS Antigen (MELANIE) result to be used for statistical tracking purpose only. No Panel InformationOrdered By: Fanny Joseph on 10-24-2021 SARS Antigen (LFIA) [facility] COVID + FLU Quick Testingon 03-09-2021 SARS-CoV-2 (COVID-19) RNA SUSHMA+probe Ql (Unsp spec) Negative [facility] Other COVID + FLU Quick Testing Positive [facility] Other COVID + FLU Quick Testing Negative [facility] Other COVID Quick Testingon 2020 Result Positive [facility] Other Vital Signs Date Time Vital Sign Value Performing Clinician Facility 11-02-2023 11:19040 Body height 154.94 cm [facility] 11-02-2023 11:19-0400 Body mass index (BMI) [Ratio] 28.7 kg/m2 [facility] 11-02-2023 11:19040 Body weight 68.94 kg [facility] 11-02-2023 11:19-0400 Diastolic blood pressure 76 mm[Hg] [facility] 11-02-2023 11:19-0400 Heart rate 79 /min [facility] 11-02-2023 11:19-0400 Respiratory rate 16 /min [facility] 11-02-2023 11:19-0400 SaO2% (BldA) [Mass fraction] 96 % [facility] 11-02-2023 11:19-0400 Systolic blood pressure 126 mm[Hg] [facility] 09-25-2022 12:45-0400 Body height 165.1 cm Fabio Gauthier Other [facility] Other 09-25-2022 12:45-0400 Body mass index (BMI) [Ratio] 25.12 kg/m2 Fabio Gauthier Other [facility] Other 09-25-2022 12:45-0400 Body weight 68.49 kg Fabio Gauthier Other [facility] 09-25-2022 12:45-0400 Diastolic blood pressure 80 mm[Hg] Fabio Gauthier Other [facility] Other 09-25-2022 12:45-0400 Respiratory rate 16 /min Fabio Gauthier Other [facility] Other 09-25-2022 12:45-0400 SaO2% (BldA) [Mass fraction] 97 % Fabio aGuthier Other [facility] Other 09-25-2022 12:45-0400 Systolic blood pressure 126 mm[Hg] Fabio Gauthier Other [facility] Other 08-10-2022 13:30-0400 Body height 165.1 cm Fabio Gauthier Other [facility] Other 08-10-2022 13:30-0400 Diastolic blood pressure 82 mm[Hg] Fabio Gauthier Other [facility] Other 08-10-2022 13:30-0400 Respiratory rate 16 /min Fabiojenae Copelandkarina Other [facility] Other 08-10-2022 13:30-0400 SaO2% (BldA) [Mass fraction] 98 % Fabiojenae Copelandkarina Other [facility] Other 08-10-2022 13:30-0400 Systolic blood pressure 128 mm[Hg] Fabio Gauthier Other [facility] Other 11-10-2021 13:30-0400 Body height 165.1 cm Fabio Gauthier Other [facility] Other 11-10-2021 13:30-0400 Body mass index (BMI) [Ratio] 23.76 kg/m2 Fabio Gauthier Other [facility] Other 11-10-2021 13:30-0400 Body weight 64.77 kg Fabio Gauthier Other [facility] Other 11-10-2021 13:30-0400 Diastolic blood pressure 84 mm[Hg] Fabio Gauthier Other [facility] Other 11-10-2021 13:30-0400 Respiratory rate 16 /min Fabio Abrahan Other [facility] Other 11-10-2021 13:30-0400 SaO2% (BldA) [Mass fraction] 96 % Fabio Gauthier Other [facility] Other 11-10-2021 13:30-0400 Systolic blood pressure 122 mm[Hg] Fabio Gauthier Other [facility] Other 10-24-2021 12:20-0400 Diastolic blood pressure 105 mm[Hg] DO Fabio Gauthier Work Phone: [facility] 10-24-2021 12:20-0400 Heart rate 93 /min DO Fabio Gauthier Work Phone: [facility] 10-24-2021 12:20-0400 Respiratory rate 18 /min DO Fabio Gauthier Work Phone: [facility] 10-24-2021 12:20-0400 SaO2% (BldA) [Mass fraction] 99 % DO Fabio Gauthier Work Phone: [facility] 10-24-2021 12:20-0400 Systolic blood pressure 157 mm[Hg] DO Fabio Gauthier Work Phone: [facility] 10-24-2021 09:37-0400 Body height 157.48 cm DO Fabio Gauthier Work Phone: [facility] 10-24-2021 09:37-0400 Body temperature 97.8 [degF] DO Fabio Gauthier Work Phone: [facility] 10-24-2021 09:37-0400 Body weight 64.86 kg DO Fabio Gauthier Work Phone: [facility] 06-22-2021 11:45-0400 Body height 165.1 cm Fabio Gauthier Other [facility] Other 06-22-2021 11:45-0400 Body mass index (BMI) [Ratio] 23.79 kg/m2 Fabio Gauthier Other [facility] Other 06-22-2021 11:45-0400 Body weight 64.86 kg Fabio Gauthier Other [facility] Other 06-22-2021 11:45-0400 Diastolic blood pressure 82 mm[Hg] Fabio Gauthier Other [facility] Other 06-22-2021 11:45-0400 Respiratory rate 16 /min Fabiojenae Copelandkarina Other [facility] Other 06-22-2021 11:45-0400 SaO2% (BldA) [Mass fraction] 97 % Fabio Gauthier Other [facility] Other 06-22-2021 11:45-0400 Systolic blood pressure 122 mm[Hg] Fabio Minkarina Other [facility] Other Encounters Encounter Date Encounter Type Care Provider Facility Start: 01-14-2024 End: 01-14-2024 ambulatory Fabio Gauthier Facility:[facility] Start: 01-04-2024 End: 01-04-2024 ambulatory DO Fabio Gauthier Work Phone: [facility] Work Phone: Start: 01-04-2024 End: 01-04-2024 Patient encounter procedure DO Fabiojenae Gauthier Work Phone: [facility] [place] Work Phone: Start: 11-09-2023 End: 11-09-2023 Patient encounter procedure DO Fabio Gauthier Work Phone: [facility] Work Phone: Start: 11-09-2023 End: 11-09-2023 ambulatory Referral Self Facility:[facility] Start: 11-05-2023 End: 11-05-2023 Patient encounter procedure DO Fabiojenae Copelandkarina Work Phone: [facility] [place] Work Phone: Start: 11-05-2023 End: 11-05-2023 ambulatory DO Fabio Gauthier Work Phone: [facility] Work Phone: Start: 11-02-2023 End: 11-02-2023 ambulatory [facility] Work Phone: Start: 11-02-2023 End: 11-02-2023 Patient encounter procedure [facility] [place] Work Phone: Start: 04-20-2023 End: 04-20-2023 ambulatory Fabio Gauthier Other [facility] Other Start: 04-20-2023 Nursing evaluation o f patient and report Fabio Gauthier [facility] [place] Start: 04-17-2023 End: 04-17-2023 ambulatory Fabio Gauthier Other [facility] Other Start: 04-17-2023 Telephone encounter Fabio Gauthier [facility] Family [facility] [place] Start: 11-07-2022 End: 11-07-2022 ambulatory DO Fabio Gauthier Work Phone: [facility] Work Phone: Start: 11-07-2022 End: 11-07-2022 Patient encounter procedure DO Fabio Gauthier Work Phone: [facility] Work Phone: Start: 09-25-2022 End: 09-25-2022 ambulatory Fabio Gauthier Other [facility] Other Start: 09-25-2022 Office outpatient vi sit 15 minutes Fabio Gauthier [facility] [place] Start: 08-14-2022 End: 08-14-2022 ambulatory DO Fabio Gauthier Work Phone: [facility] Work Phone: Start: 08-14-2022 End: 08-14-2022 Patient encounter procedure DO Fabio Abrahan Work Phone: [facility] [place] Work Phone: Start: 08-10-2022 End: 08-10-2022 ambulatory Fabio Gauthier Other [facility] Other Start: 08-10-2022 Office outpatient vi sit 25 minutes Fabio Gauthier [facility] [place] Start: 05-23-2022 End: 05-23-2022 ambulatory Fabio Gauthier Other [facility] Other Start: 05-23-2022 Telephone encounter Fabio Gauthier [facility] [place] Start: 03-28-2022 End: 03-28-2022 ambulatory Fabio Gauthier Other [facility] Other Start: 03-28-2022 Telephone encounter Fabio Gauthier [facility] [place] Start: 03-14-2022 End: 03-14-2022 ambulatory Fabio Gauthier Other [facility] Other Start: 03-14-2022 Telephone encounter Fabio Gauthier [facility] [place] Start: 11-10-2021 End: 11-10-2021 ambulatory Fabio Gauthier Other [facility] Other Start: 11-10-2021 Office outpatient vi sit 15 minutes Fabio Gauthier [facility] [place] Start: 11-04-2021 End: 11-04-2021 ambulatory Fabio Gauthier Other [facility] Other Start: 11-04-2021 Telephone encounter Fabio Gauthier [facility] [place] Start: 10-24-2021 End: 10-24-2021 Emergency department patient visit DO Fabio Gauthier Work Phone: [facility] Start: 10-19-2021 End: 10-19-2021 Patient encounter procedure DO Fabio Gauthier Work Phone: [facility] Start: 10-14-2021 End: 10-14-2021 Patient encounter procedure DO Fabio Gauthier Work Phone: [facility] [place] Start: 09-27-2021 End: 09-27-2021 ambulatory Fabio Minkarina Other [facility] Other Start: 09-27-2021 Telephone encounter Fabiojenae Gauthier [facility] [place] Start: 07-21-2021 End: 07-21-2021 ambulatory Fabio Gauthier Other [facility] Other Start: 07-21-2021 Telephone encounter Fabio Abrahan [facility] [place] Start: 06-22-2021 End: 06-22-2021 ambulatory Fabio Gauthier Other [facility] Other Start: 06-22-2021 Office outpatient vi sit 15 minutes Fabio Gauthier [facility] [place] Start: 06-13-2021 End: 06-13-2021 ambulatory Fabio Gauthier Other [facility] Other Start: 06-13-2021 Telephone encounter Fabiojenae Gauthier [facility] [place] Start: 05-31-2021 End: 05-31-2021 ambulatory Fabio Gauthier Other [facility] Other Start: 05-31-2021 Telephone encounter Fabio Mins [facility] [place] Start: 03-09-2021 End: 03-09-2021 ambulatory Fabio Gauthier Other [facility] Other Start: 03-09-2021 Nursing evaluation o f patient and report Fabio Gauthier [facility] Start: 03-09-2021 Telephone encounter Fabio Gauthier [facility] Start: 03-08-2021 End: 03-08-2021 ambulatory Fabiojenae Gauthier Other [facility] Other Start: 03-08-2021 Telephone encounter Fabio Gauthier [facility] Start: 02-25-2021 End: 02-25-2021 ambulatory Fabio Gauthier Other [facility] Other Start: 02-25-2021 Telephone encounter Fabio Gauthier [facility] Start: 12-20-2020 Nursing evaluation o f patient and report Fabiojenae Copelandkarina [facility] Start: 12-20-2020 Telephone encounter Fabiojenae Copelandkarina [facility] Procedures Date Procedure Procedure Detail Performing Clinician Start: 01-04-2024 RSV (POC) DO Fabio Blanca royal Work Phone: Start: 11-09-2023 Screening mammograph y of bilateral breasts DO Fabio Gauthier Work Phone: Start: 11-07-2022 Screening mammograph y of bilateral breasts DO Fabio Gauthier Work Phone: Start: 10-19-2021 Bilateral mammography D O Fabio Gauthier Work Phone: Start: 10-19-2021 Ultrasonography of l eft breast DO Fabio Gauthier Work Phone: Start: 10-14-2021 Plain X-ray of bilat eral hands DO Fabio Gauthier Work Phone: SARS Antigen (LFIA) DO Fabio Abrahan Work Phone: Plan of Treatment Date Care Activity Detail Author Start: 11-05-2023 [facility] Start: 11-02-2023 Patient referral [facility] Work Phone: Start: 10-24-2021 End: 10-24-2021 Emergency department patient visit Departed Emergency [facility] Start: 10-19-2021 Bilateral mammography MM diagnostic mammo BI w/CAD [facility] Start: 10-19-2021 Ultrasonography of left breast US breast LT limited [facility] Start: 10-19-2021 End: 10-19-2021 Patient encounter procedure Departed Clinical [facility] Comprehensive metabo lic 2000 panel - Serum or Plasma [facility] Glucose measurement estimated from glycated hemoglobin [facility] Patient Education Sinusitis, Adult ED Fir [facility] Work Phone: Patient referral [facility] Work Phone: US Abdomen limited [facility] Immunizations Immunization Date Immunization Notes Care Provider Fa porsha 06-21-2018 influenza, seasonal, injectable Patient Objection Fabio Gauthier Other [facility] Other 03-20-2001 measles, mumps and rubella virus vaccine [facility] NEGATED: Highlighted row has not occurred!06-21-2018 influenza, seasonal, injectable Patient Objection Fabio Gauthier Other [facility] Other Payers Date Payer Category Payer Medicaid [id number] 2023 Self-pay [id number] 2017 [facility] [id number] Medicaid [id number] Unknown [id number] Unknown [id number] Unknown [id number] Unknown [id number] Unknown [id number] Social History Date Type Detail Facility Unknown if ever smoked [facility] Other Sex Assigned At Sex Assigned At Bir th [facility] Other Start: 10-24-2021 End: 11-02-2023 Tobacco smoking status NHIS Never smoked tobacco (finding) [facility] Start: 1975 Sex Assigned At Female [facility] Clinical Notes 04-12-2014 to 11-02-2023 Note Date & Type Note Facility 11-02-2023 Evaluation note Authored November 02, 2023 11:26am The above note written by WILLY Ruiz acting as human recorder, note dictated by Dr. Fabio Gauthier. [facility] Work Phone: 1(722) 500-266102-09-2024 Evaluation note* Encounter Date Diagnosis Assessment Notes Treatment Notes Treatment Clinical Notes Apr, Acute cough (ICD-10 - R05.1) Apr, Headache (ICD-10 - R51.9) [facility] Other [id number] Evaluation note* Encounter Date Diagnosis Assessment Notes [...] Z12.39) The above screening imaging ordered today [facility] Other 06-01-2023 Evaluation note* Encounter Date Diagnosis [...] Blood work ordered to evaluate hormone levels. [facility] Other 01-17-2023 Evaluation note* Encounter Date Diagnosis Assessment Notes Treatment Notes Treatment Clinical Notes Mar, Sinusitis (ICD-10 - J32.9) [facility] Other 01-03-2023 Evaluation note* Encounter Date Diagnosis Assessment Notes Treatment Notes Treatment Clinical Notes Mar, Blood pressure elevated (ICD-10 - I10) [facility] Other 09-01-2022 Evaluation note* Encounter Date Diagnosis [...] is to continue with the above medication. [facility] Other 04-13-2022 Evaluation note* Encounter Date Diagnosis [...] side (ICD-10 - H70.91) Above medication prescribed. [facility] Other 04-04-2022 Evaluation note* Encounter Date Diagnosis Assessment Notes Treatment Notes Treatment Clinical Notes Jun, Blood pressure elevated (ICD-10 - I10) [facility] Other 12-29-2021 Evaluation note* Encounter Date Diagnosis Assessment Notes Treatment Notes Treatment Clinical Notes Feb, Cough (ICD-10 - R05.9) Feb, Influenza A (ICD-10 - J10.1) In house covid and flu test was positive for influenza A. [facility] Other 10-11-2021 Evaluation note* Encounter Date Diagnosis [...] updated on her condition. See telephone encounter. 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 Medical History 05/13/2015 Mammogram Medical History MRSA (methicillin re sistant staph aureus) culture positive Medical History COVID 19 + (12/20/2020) Surgical History Hysterectomy 06/2016 Hospitalization History 12/22/96 Hospitalization History 01/20/20 02 Hospitalization History 11/16/2007 [facility] Other Evaluation noteNo InformationNort [employer] Other Evaluation noteNo assessment information available [facility] Work Phone: Evaluation note* Author Isabel Calderón [facility] Authored November 02, 2023 11 :26am The above note written by WILLY Ruiz acting as human recorder, note dictated by Dr. Fabio Gauthier. [facility] Work Phone: Hospital Discharge instructionsAmbulatory Orders* Referral to Vascular Surgery Time Frame: 11/02/23, Location: None Selected [facility] Work Phone: Chief Complaint and Reason for [...] HTN (hypertension) Hyperlipemia Phlebitis Sinusitis Family History No Family History Records Found Relationship Condition Age at Onset Recorded Date/T [...] uterus Unknown Malignant neoplasm Unknown Advance Directives No Advanced Directives Records Found Advance Directive Response Recorded Date/ Time Advance [...] Active Member Role Status Dates Fabio Gauthier DO Primary Care Provider Active Team Status: Inactive Member Role Status Dates Fabio Gauthier DO Primary Care Provider, Attending Provi janeen Active Team Status: Inactive Member Role Status Dates Fabio Gauthier DO Primary Care Provider Active Fanny Joseph [facility] Emergency Provider Active Team Status: Inactive Member [...] 2023 Referral Self Attending Provider Active Start: Bernice [email or web address] End: November 09, 2023 Team Status: Inactive Member Role Status Dates Fabio Gauthier DO Primary Care Provide r, Attending Provider Active Start: January 04, 2024 End: January 04, 2024 Goals (unrecognized section and content) Goals may be documented in a n alternate section INFORMATION SOURCE (unrecogn ized section and content) DATE CREATED AUTHOR 01/15/2024 [facility] FOR RECORDS PERTAINING TO PATIENTS WHO [...] BE BASED ON THE PRIMARY CLINICAL RECORDS. [facility] [employer] provides no warranty or guarantee of the accuracy or completeness of information in this document.
[2024-01-15 10:52] VITALS: BMI 25.4
--- NOTE | 2024-01-15 10:52 | V.VEINS.HP ---
Vital Signs 01/15/24 10:52 Height 5 ft 4 in Weight 67 kg BMI 25.4 Varicose Veins Patient in this day for follow up ultrasound post EVLT of left AASV. Tony Reynolds MD personally performed the services described in this documentation, as scribed by Keisha Montero RVT, RDMS in my presence and it is both accurate and complete. I, Keisha Montero RVT, RDMS, am scribing for, and in the presence of, Dr. Tony Higuera and in the presence of the patient. . knee: left aching, cramping and dull 8 3 years Worsened in recent months: Yes standing and sitting analgesics (Tylenol), elevating extremities and compression stockings Reports limb pain (left leg) History of lower extremity trauma: No Superficial thrombophlebitis: No Family history of varicose veins: yes Has patient had previous lower extremity venous surgery: No Patient has previously received the following treatment(s) for lower extremity varicose veins: Reports none Does patient have a history of : yes Does patient intend to have future pregnancies: no Has patient had lower extremity venous scan with relux testing: No Support hose used: Yes Problems walking or doing physical activity: Yes How does it affect you: often has to stop and rest and elevate Do you walk much: Yes Do you stand much: Yes Review of Systems ROS Narrative Tony Reynolds MD personally performed the services described in this documentation, as scribed by Keisha Montero RVT, RDMS in my presence and it is both accurate and complete. I, Keisha Montero RVT, RDMS, am scribing for, and in the presence of, Dr. Tony Higuera and in the presence of the patient. Status of ROS 10 or more systems reviewed and unremarkable except as noted in history and below Integumentary/Breast Reports: skin tenderness Neurological Reports: weakness in extremities [facility] Medical History (Updated 01/15/24 @ 10:55 by Keisha Montero) Phlebitis and thrombophlebitis of superficial vessels of left lower extremity ?I80.02 - Phlebitis and thrombophlebitis of superficial vessels of left lower extremity (ICD-10) Varicose veins of bilateral lower extremities with pain ?I83.813 - Varicose veins of bilateral lower extremities with pain (ICD-10) Anemia ?D64.9 - Anemia, unspecified (ICD-10) Carpal tunnel syndrome, left ?G56.02 - Carpal tunnel syndrome, left upper limb (ICD-10) Hyperlipemia ?E78.5 - Hyperlipidemia, unspecified (ICD-10) Microcytic anemia ?D50.9 - Iron deficiency anemia, unspecified (ICD-10) MRSA (methicillin resistant Staphylococcus aureus) ?A49.02 - Methicillin resistant Staphylococcus aureus infection, unspecified site (ICD-10) Phlebitis ?I80.9 - Phlebitis and thrombophlebitis of unspecified site (ICD-10) Cellulitis ?L03.90 - Cellulitis, unspecified (ICD-10) Surgical History (Updated 01/08/24 @ 10:54 by Manoj Cisneros) Status post laser ablation of incompetent vein ?Z98.890 - Other specified postprocedural states (ICD-10) H/O: hysterectomy ?Z90.710 - Acquired absence of both cervix and uterus (ICD-10) Family History (Updated 11/30/23 @ 12:54 by Manoj Cisneros) Other Cerebral aneurysm Family history of myocardial infarction Renal failure Social History (Updated 11/30/23 @ 12:54 by Manoj Cisneros) Within the past year, how often did you have a drink containing alcohol: monthly or less Smoking status: Never smoker Non-prescribed substance use: denies use Meds Home Medications and Allergies Home Medications ?Medication ?Instructions ?Recorded ?Confirmed ?Type amlodipine 5 mg tablet 5 mg PO DAILY 11/30/23 11/30/23 History ferrous sulfate 325 mg (65 mg 325 mg PO DAILY 11/30/23 11/30/23 History iron) tablet (Feosol) Allergies Allergy/AdvReac Type Severity Reaction Status Date / Time No Known Drug Allergies Allergy Verified 11/30/23 12:55 Exam Narrative Exam Narrative: ITony MD personally performed the services described in this documentation, as scribed by Keisha Montero RVT, RDMS in my presence and it is both accurate and complete. IKeisha RVT, RDMS, am scribing for, and in the presence of, Dr. Tony Higuera and in the presence of the patient. Constitutional Documenting provider has reviewed patient's vital signs: yes Common normals: oriented x3 Cardio Peripheral pulses: posterior tibial pulses present and dorsalis pedis pulses present Extremity Common normals: normal capillary refill General: calf tenderness and edema Right lower extremity: lower leg Right lower leg: inspection and palpation Left lower extremity: lower leg Left lower leg: inspection and palpation Neuro Common normals: oriented x3 Results Imaging Venous US: Radiologist's impression: The ultrasound demonstrates Heat induced thrombus visulized 1.4s from SFJ. The heat induced thrombus extends through prox AASV. Assessment and Plan Assessment and Plan (1) Varicose veins of bilateral lower extremities with pain: (2) Phlebitis and thrombophlebitis of superficial vessels of left lower extremity: Plan Patient in today for follow up ultrasound of lower extremity following treatment of EVLT of left leg AASV completed on 01/08/24.
--- NOTE | 2024-01-15 10:55 | W.VEIN ---
Discharge Plan Discharge Disposition: Home, Self-Care Outpatient Diagnostics: VC Endovenous Ablation 1VeinLT (Routine) Timeframe: 2 Weeks Facility: [facility] - Location: [facility] Center Ordered By: Tony Higuera Follow Up Appointments: 01/28/24 Print Language: Turkish
== END 2024-01-15 11:00 | disposition home or self-care (01) ==
PROVIDERS: PCP Radiology Diagnostic Radiology; Visit Provider Radiology Diagnostic Radiology
DX: I80.02 Phlebitis and thrombophlebitis of superficial vessels of left lower extremity (principal)
CPT/HCPCS: 93971; G0463

== ENCOUNTER 2024-01-28 10:06 | Outpatient (OUT) | payer BC, MEDICAID, SELFPAY ==
--- NOTE | 2024-01-24 10:01 | V.VEINS.HP ---
Vital Signs 01/28/24 10:48 BP 124/64 BP Location Left Brachial BP Position Sitting BP Cuff Size Adult BP Source Manual Cuff Respiration 16 Pulse 82 Pulse Source Monitor Pulse Oximetry (%) 100 Oxygen Delivery Method Room Air Comment The patient's blood pressure is elevated. Varicose Veins Patient in this day for EVLT of left GSV Clem Reynolds MD personally performed the services described in this documentation, as scribed by Manoj Cisneros RN in my presence and it is both accurate and complete. Manoj Reynolds RN, am scribing for, and in the presence of, Dr. Clem Kumar and in the presence of the patient. . knee: left aching, cramping and dull 8 3 years Worsened in recent months: Yes standing and sitting analgesics (Tylenol), elevating extremities and compression stockings Reports limb pain (left leg) History of lower extremity trauma: No Superficial thrombophlebitis: No Family history of varicose veins: yes Has patient had previous lower extremity venous surgery: No Patient has previously received the following treatment(s) for lower extremity varicose veins: Reports none Does patient have a history of : yes Does patient intend to have future pregnancies: no Has patient had lower extremity venous scan with relux testing: No Support hose used: Yes Problems walking or doing physical activity: Yes How does it affect you: often has to stop and rest and elevate Do you walk much: Yes Do you stand much: Yes Review of Systems ROS Narrative Clem Reynolds MD personally performed the services described in this documentation, as scribed by Manoj Cisneros RN in my presence and it is both accurate and complete. Manoj Reynolds RN, am scribing for, and in the presence of, Dr. Clem Kumar and in the presence of the patient. Status of ROS 10 or more systems reviewed and unremarkable except as noted in history and below Integumentary/Breast Reports: skin tenderness Neurological Reports: weakness in extremities [facility] Medical History (Updated 01/28/24 @ 10:57 by Manoj Cisneros) Superficial thrombophlebitis of left leg ?I80.02 - Phlebitis and thrombophlebitis of superficial vessels of left lower extremity (ICD-10) Phlebitis and thrombophlebitis of superficial vessels of left lower extremity ?I80.02 - Phlebitis and thrombophlebitis of superficial vessels of left lower extremity (ICD-10) Varicose veins of bilateral lower extremities with pain ?I83.813 - Varicose veins of bilateral lower extremities with pain (ICD-10) Anemia ?D64.9 - Anemia, unspecified (ICD-10) Carpal tunnel syndrome, left ?G56.02 - Carpal tunnel syndrome, left upper limb (ICD-10) Hyperlipemia ?E78.5 - Hyperlipidemia, unspecified (ICD-10) Microcytic anemia ?D50.9 - Iron deficiency anemia, unspecified (ICD-10) MRSA (methicillin resistant Staphylococcus aureus) ?A49.02 - Methicillin resistant Staphylococcus aureus infection, unspecified site (ICD-10) Phlebitis ?I80.9 - Phlebitis and thrombophlebitis of unspecified site (ICD-10) Cellulitis ?L03.90 - Cellulitis, unspecified (ICD-10) Surgical History (Updated 01/28/24 @ 11:01 by Manoj Cisneros) Status post laser ablation of incompetent vein ?Z98.890 - Other specified postprocedural states (ICD-10) Status post laser ablation of incompetent vein ?Z98.890 - Other specified postprocedural states (ICD-10) H/O: hysterectomy ?Z90.710 - Acquired absence of both cervix and uterus (ICD-10) Family History (Updated 11/30/23 @ 12:54 by Manoj Cisneros) Other Cerebral aneurysm Family history of myocardial infarction Renal failure Social History (Updated 11/30/23 @ 12:54 by Manoj Cisneros) Within the past year, how often did you have a drink containing alcohol: monthly or less Smoking status: Never smoker Non-prescribed substance use: denies use Meds Home Medications and Allergies Home Medications ?Medication ?Instructions ?Recorded ?Confirmed ?Type amlodipine 5 mg tablet 5 mg PO DAILY 11/30/23 11/30/23 History ferrous sulfate 325 mg (65 mg 325 mg PO DAILY 11/30/23 11/30/23 History iron) tablet (Feosol) Allergies Allergy/AdvReac Type Severity Reaction Status Date / Time No Known Drug Allergies Allergy Verified 11/30/23 12:55 Exam Narrative Exam Narrative: I, Clem Kumar MD personally performed the services described in this documentation, as scribed by Manoj Blayne RN in my presence and it is both accurate and complete. I, Manoj Cisneros RN, am scribing for, and in the presence of, Dr. Clem uKmar and in the presence of the patient. Constitutional Documenting provider has reviewed patient's vital signs: yes Common normals: oriented x3 Cardio Peripheral pulses: posterior tibial pulses present and dorsalis pedis pulses present Extremity Common normals: normal capillary refill General: calf tenderness and edema Right lower extremity: lower leg Right lower leg: inspection and palpation Left lower extremity: lower leg Left lower leg: inspection and palpation Neuro Common normals: oriented x3 Assessment and Plan Assessment and Plan (1) Varicose veins of bilateral lower extremities with pain: Plan f/u examination with physician along with left leg limited u/s IClem MD personally performed the services described in this documentation, as scribed by Manoj Cisneros RN in my presence and it is both accurate and complete. I, Manoj Cisneros RN, am scribing for, and in the presence of, Dr. Clem Kumar and in the presence of the patient. Procedures Procedure Instructions Procedures Plan of care: Risks and benefits of the procedure were discussed at length and informed written consent was obtained.? Time-out completed for verification of correct patient, procedure and site.? Staff present during time-out: Manoj Cisneros RN,? Clem Kumar MD, [facility],. Time Out Time_1056 Patient prepped and procedure performed in usual sterile fashion. Risk of injury related to use of Diode laser and/or laser devices__CR___ ? Serial number of laser used :? [id number] Control panel self test performed, electrical cords in good condition, floor is dry, basin of water available, fire extinguisher in close proximity_CR__ Polycarbonate goggles available and Laser warning signs outside of doors___CR__ Eye protection provided to patient and staff in room_CR___ Use of laser retardant drapes and dull blackened instruments as directed__CR___ Use of nonflammable prep solutions and use of saline soaked sponges to protect tissues as indicated _CR___ Length __11 cm Laser operated by __Dr. Kumar Physician verbal confirmation laser locked in place__CR__ Laser start time (date and time) __01/28/2024@_1106 Laser stop time(date and time) __01/28/2024@__1108 Bautista _8.0___ Average laser use __577 Joules Average laser use__72 seconds Pulse continuous ___CR_? Pulse intermittent ___ Amount of Tumescent used _100cc Evaluated patient for signs and symptoms of electrical injury __CR___ ? Skin clear at insertion site __CR___ Patient tolerated procedure well.? Left leg Coban dressing applied to access site.? Applied Left thigh high leg compression stocking. Will return on 02/05/2024 for Left leg limited venous ultrasound and exam. IClem MD personally performed the services described in this documentation, as scribed by Manoj Cisneros RN in my presence and it is both accurate and complete. I, Manoj Cisneros RN, am scribing for, and in the presence of, Dr. Clem Kumar and in the presence of the patient.
--- NOTE | 2024-01-24 10:07 | W.VEIN ---
Discharge Plan Discharge Disposition: Home, Self-Care Outpatient Diagnostics: VC Facility EST LMTD (Routine) Timeframe: 2 Weeks Facility: [facility] - Location: Vein Center Ordered By: Clem Kumar VC EXT Venous LT Limited (Routine) Timeframe: 2 Weeks Facility: [facility] - Location: Vein Center Ordered By: Clem Kumar Follow Up Appointments: 02/05/2024 Plan of Treatment: f/u evaluation with physician along with left leg limited u/s Patient Instructions: Endovenous Ablation (DC) Print Language: Sierra Leonean Discharge Date/Time: 01/28/24 10:58
--- NOTE | 2024-01-28 10:08 | VEIN_ITS ---
[address] [address] Patient Name: ANA EMMANUEL MRN: [id number] date: 1975 Sex: F Assigned Patient Location: Current Patient Location: Accession/Order Number: [id number] Exam Date: 01/28/2024 10:26 Report Date: 01/28/2024 15:06 At the request of: CHENTE ROBERTS Procedure: VC Endovenous Ablation 1VeinLT EXAMINATION: VC Endovenous Ablation 1VeinLT HISTORY: I83.813 - Varicose veins of bilateral lower extremities w... The risks and benefits of the procedure had been previously discussed, and were rediscussed at length. Informed written consent was obtained. Manoj Cisneros RN and Araseli Taveras RDMS assisted. Time out procedure was performed. The left lower extremity was prepared and draped in the usual sterile fashion to allow knee flexion in the sterile field. Duplex ultrasound probe was draped in a sterile cover, sterile transmission gel was used. Venous mapping was performed with the areas of dilation and large tributaries marked. The total length was 11 cm from the entry distal thigh to 3 cm below the Saphenofemoral junction. The diameter of the left great saphenous vein ranged from 8.7 mm. A 30 gauge needle and 1% buffered lidocaine was used to anesthetize the entry site. A 4 mm incision was made with a scalpel and the saphenous vein was entered percutaneously under direct ultrasound guidance with a micropuncture set, a single stick was successful in gaining access. A micro-guide wire was inserted and the needle removed. A micro-set including a dilator was inserted over the microwire and the needle and dilator were removed. A guide wire was inserted through the micro-set and guided through the saphenous vein to the saphenofemoral junction. The dilator was removed and an introducer sheath was inserted over the wire until the end of the sheath entered the saphenofemoral junction. The dilator and wire were removed and the 600 micron fiber was introduced and placed and positioned so that it extended beyond the sheath and was 3 cm distal to the saphenofemoral or saphenopopliteal junction. Final position of the fiber was determined by ultrasound guidance and duplex imaging. Tumescent anesthetic was delivered by ultrasound guidance. 100 cc of fluid was delivered along the entire course of the saphenous vein. The solution consisted of 1000 cc of normal saline with 40 mL of 1% lidocaine and 20 mL of sodium bicarbonate. A final positioning check was made. The energy source was turned on by means of the foot pedal and the fiber and sheath were withdrawn. The total number of Joules delivered was 577. The laser was active for 72 seconds under continuous pulse, average laser use of 8 J. Laser start time: 11:06 AM Laser stop time: 11:08 AM Date: 01/28/2024. A duplex ultrasound revealed compressibility and flow at the saphenofemoral junction immediately after the procedure. Hemostasis at the access site was achieved. The skin incision of the saphenous vein was closed with a 4 x 4. A compression stocking was applied. Postop instructions were given. A follow up appointment was recommended and scheduled. The patient tolerated the procedure well. Electronically authenticated by: MALDONADO BLEVINS Date: 01/28/2024 15:06
[2024-01-28 10:48] VITALS: BP 124/64; PULSE 82; O2SAT 100
[2024-01-28] MEDS: LIDOCAINE HCL 1% 100 MG/10 ML MDV INJ (11:26)
[2024-01-28] MEDS: 0.9 % SODIUM CHLORIDE 500 ML, LIDOCAINE HCL 20 ML, SODIUM BICARBONATE 10 MEQ INJ (11:27)
== END 2024-01-28 10:58 | disposition home or self-care (01) ==
LOC: VC 10:06
PROVIDERS: PCP Radiology Diagnostic Radiology; Visit Provider Radiology Diagnostic Radiology
DX: I83.813 Varicose veins of bilateral lower extremities with pain (principal)
CPT/HCPCS: 36478

== ENCOUNTER 2024-02-05 09:18 | Outpatient (OUT) | payer BC, MEDICAID, SELFPAY ==
--- NOTE | 2024-02-05 07:30 | VEINCLINIC_ITS ---
Varicose Veins Patient in this day for follow up ultrasound EVLT of left GSV Clem Reynolds MD personally performed the services described in this documentation, as scribed by Keisha Montero RVT, RDMS in my presence and it is both accurate and complete. Keisha Reynolds RVT, RDMS, am scribing for, and in the presence of, Dr. Clem Kumar and in the presence of the patient. . knee: left aching, cramping and dull 8 3 years Worsened in recent months: Yes standing and sitting analgesics (Tylenol), elevating extremities and compression stockings Reports limb pain (left leg) History of lower extremity trauma: No Superficial thrombophlebitis: No Family history of varicose veins: yes Has patient had previous lower extremity venous surgery: No Patient has previously received the following treatment(s) for lower extremity varicose veins: Reports none Does patient have a history of : yes Does patient intend to have future pregnancies: no Has patient had lower extremity venous scan with relux testing: No Support hose used: Yes Problems walking or doing physical activity: Yes How does it affect you: often has to stop and rest and elevate Do you walk much: Yes Do you stand much: Yes Review of Systems ROS Narrative Clem Reynolds MD personally performed the services described in this documentation, as scribed by Keisha Montero RVT, RDMS in my presence and it is both accurate and complete. Keisha Reynolds RVT, RDMS, am scribing for, and in the presence of, Dr. Clem Kumar and in the presence of the patient. Status of ROS 10 or more systems reviewed and unremark able except as noted in history and below Integumentary/Breast Reports: skin tenderness Neurological Reports: weakness in extremities [facility] Medical History (Updated 01/28/24 @ 10:57 by Manoj Cisneros) Superficial thrombophlebitis of left leg ?I80.02 - Phlebitis and thrombophlebitis of superficial vessels of left lower extremity (ICD-10) Phlebitis and thrombophlebitis of superficial vessels of left lower extremity ?I80.02 - Phlebitis and thrombophlebitis of superficial vessels of left lower extremity (ICD-10) Varicose veins of bilateral lower extremities with pain ?I83.813 - Varicose veins of bilateral lower extremities with pain (ICD-10) Anemia ?D64.9 - Anemia, unspecified (ICD-10) Carpal tunnel syndrome, left ?G56.02 - Carpal tunnel syndrome, left upper limb (ICD-10) Hyperlipemia ?E78.5 - Hyperlipidemia, unspecified (ICD-10) Microcytic anemia ?D50.9 - Iron deficiency anemia, unspecified (ICD-10) MRSA (methicillin resistant Staphylococcus aureus) ?A49.02 - Methicillin resistant Staphylococcus aureus infection, unspecified site (ICD-10) Phlebitis ?I80.9 - Phlebitis and thrombophlebitis of unspecified site (ICD-10) Cellulitis ?L03.90 - Cellulitis, unspecified (ICD-10) Surgical History (Updated 01/28/24 @ 11:01 by Manoj Cisneros) Status post laser ablation of incompetent vein ?Z98.890 - Other specified postprocedural states (ICD-10) Status post laser ablation of incompetent vein ?Z98.890 - Other specified postprocedural states (ICD-10) H/O: hysterectomy ?Z90.710 - Acquired absence of both cervix and uterus (ICD-10) Family History (Updated 11/30/23 @ 12:54 by Manoj Cisneros) Other Cerebral aneurysm Family history of myocardial infarction Renal failure Social History (Updated 11/30/23 @ 12:54 by Manoj Cisneros) Within the past year, how often did you have a drink containing alcohol: monthly or less Smoking status: Never smoker Non-prescribed substance use: denies use Meds Home Medications and Allergies Home Medications ?Medication ?Instructions ?Recorded ?Confirmed ?Type amlodipine 5 mg tablet 5 mg PO DAILY 11/30/23 11/30/23 History ferrous sulfate 325 mg (65 mg 325 mg PO DAILY 11/30/23 11/30/23 History iron) tablet (Feosol) Allergies Allergy/AdvReac Type Severity Reaction Status Date / Time No Known Drug Allergies Allergy Verified 11/30/23 12:55 Exam Narrative Exam Narrative: IClem MD personally performed the services described in this documentation, as scribed by Keisha Montero RVT, RDMS in my presence and it is both accurate and complete. I, Keisha Montero RVT, RDMS, am scribing for, and in the presence of, Dr. Clem Kumar and in the presence of the patient. Constitutional Documenting provider has reviewed patient's vital signs: yes Common normals: oriented x3 Cardio Peripheral pulses: posterior tibial pulses present and dorsalis pedis pulses present Extremity Common normals: normal capillary refill General: calf tenderness and edema Right lower extremity: lower leg Right lower leg: inspection and palpation Left lower extremity: lower leg Left lower leg: inspection and palpation Neuro Common normals: oriented x3 Results Imaging Venous US: Radiologist's impression: The ultrasound demonstrates Heat induced thrombus visualized 1.1cm from the SFJ. The heat induced thrombus extends from SFJ to mid thigh. Assessment and Plan Assessment and Plan (1) Phlebitis and thrombophlebitis of superficial vessels of left lower extremity: Plan Patient in today for follow up ultrasound of lower extremity following treatment of EVLT of left leg GSV completed on 01/28/24. IClem MD personally performed the services described in this documentation, as scribed by Keisha Montero RVT, RDMS in my presence and it is both accurate and complete. Keisha Reynolds RVT, RDMS, am scribing for, and in the presence of, Dr. Clem Kumar and in the presence of the patient.
--- NOTE | 2024-02-05 07:32 | W.VEIN ---
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 Print Language: Albanian Discharge Date/Time: 02/05/24 09:44
--- NOTE | 2024-02-05 09:19 | VEIN_ITS ---
Patient Name: ANA EMMANUEL MR#: [id number] : 1975 Exam Date: 02/05/2024 Ordering Doctor: DR MALDONADO KUMAR M.D. RADIOLOGY REPORT PROCEDURE: VC EXT VENOUS LT LIMITED COMPARISON: VC EXT VENOUS LT LIMITED, 01/15/2024. INDICATIONS: I80.02 - Phlebitis and thrombophlebitis of superficial ve... TECHNIQUE: Lower extremity taylor scale and Duplex Doppler evaluation of the deep venous system from the inguinal ligament through the calf veins. FINDINGS: REGION: Left lower extremity. THROMBI: Negative for DVT. Heat induced thrombus visualized 1.1cm from the SFJ. The heat induced thrombus extends from SFJ to mid thigh. COMPRESSIBILITY: Non-compressible segments corresponding to thrombus FLOW: Areas of no flow corresponding to thrombus OTHER: CONCLUSION: 1. Successful post ablation occlusion of left great saphenous vein. Dictated by: Maldonado Kumar M.D. on 02/05/2024 at 12:38 Approved by: Maldonado Kumar M.D. on 02/05/2024 at 12:42
--- NOTE | 2024-02-05 09:19 | VEIN_ITS ---
Patient Name: ANA EMMANUEL MR#: [id number] : 1975 Exam Date: 02/05/2024 Ordering Doctor: DR MALDONADO BLEVINS M.D. RADIOLOGY REPORT PROCEDURE: [facility] EST [facility] - OFFICE VISIT FOLLOW UP COMPARISON: [facility], 01/15/2024. PROGRESS NOTES: The patient reports improvement in leg symptoms. There has been interval reduction in varicosities. The patient has followed our recommendations to walk 20-30 minutes once or twice per day since the procedure. Physical exam demonstrates decrease in varicosities of the leg. Persistent varicosities are identified along the left leg. Review of the ultrasound performed the same day demonstrates occlusive thrombus extending throughout the treated vein(s), see separate report, consistent with a successful ablation. No thrombus extending into or beyond the saphenofemoral junction. The patient expressed a desire to proceed with treatment of remaining incompetent branch saphenous varicosities. The patient was informed that treatment was a process and would require 1-2 procedures/sessions. [facility]: 1. Successful ablation of the left great saphenous vein(s). 2. Persistent varicose veins and lower extremity symptoms. PLAN: 1. Microfoam chemical ablation of left leg incompetent branch saphenous varicosities. Nurse notes, history and physical were reviewed and confirmed, see attached forms. The nurse was present throughout the physical exam and consultation Dictated by: Maldonado Blevins M.D. on 02/05/2024 at 12:42 Approved by: Maldonado Blevins M.D. on 02/05/2024 at 12:43
== END 2024-02-05 09:44 | disposition home or self-care (01) ==
LOC: VC 09:19
PROVIDERS: PCP Radiology Diagnostic Radiology; Visit Provider Radiology Diagnostic Radiology
DX: I80.02 Phlebitis and thrombophlebitis of superficial vessels of left lower extremity (principal)
CPT/HCPCS: 93971; G0463